=== PATIENT | female | born 1945 | race Caucasian/White ===

== ENCOUNTER 2020-04-25 14:22 | Outpatient (CLI) | payer MEDICARE, SELFPAY ==
--- NOTE | ~2020-04-25 | MM_ITS ---
EXAMINATION: MM screening anand BI w vince HISTORY: Screening mammogram TECHNIQUE: Craniocaudal and mediolateral oblique 3-D tomosynthesis images were obtained and synthetic 2-D images were generated. CAD analysis was submitted and interpreted. COMPARISON: 02/23/2019, 02/16/2018 by lateral digital screening mammogram examinations BREAST PARENCHYMAL COMPOSITION: There are scattered areas of fibroglandular density. FINDINGS: Stable mild fibroglandular asymmetry. Scattered bilateral benign calcifications. There is n o evidence of suspicious mass, calcification, or architectural distortion to suggest malignancy in ei ther breast. There has been no suspicious interval change. IMPRESSION: 1. No mammographic evidence of malignancy. 2. Recommend routine screening mammography in one year. BI-RADS Category 2: Benign finding(s). Reviewed, dictated and finalized at location A. ER DOOR ASSEMBLER
== END 2020-04-25 14:23 | disposition home or self-care (01) ==
LOC: ANHIMG 14:27
PROVIDERS: PCP Internal Medicine; Visit Provider Internal Medicine
DX: Z12.31 Encounter for screening mammogram for malignant neoplasm of breast (principal)
CPT/HCPCS: 77063; 77067

== ENCOUNTER 2020-05-01 09:27 | Outpatient (CLI) | payer MEDICARE, SELFPAY ==
--- NOTE | ~2020-05-01 | NM_ITS ---
EXAMINATION: NM stress w perf spect multi DATE: 05/01/2020 11:52 INDICATION: Chest pain TECHNIQUE: Rest images were obtained following intravenous administration of 9.1 mCi Tc99m tetrofosmi n ([employer]). The patient performed an exercise activity. At peak exercise, 27 mCi Tc99m tetrofosmin ( [employer]) was administered intravenously, and stress images were obtained. Data was reconstructed into short axis and horizontal and vertical long axis SPECT images. Gated SPECT images were also obtained . COMPARISON: None. FINDINGS: There is normal left ventricular perfusion without definite evidence of reversible or fixed perfusion abnormality to suggest ischemia or infarction. There is normal left ventricular chamber size, wall motion and ejection fraction. Left ventricular ejection fraction measures >70%. IMPRESSION: 1. Normal myocardial perfusion at rest and during stress. 2. Left ventricular ejection fraction measuring >70%. Reviewed, dictated and finalized at location B. ER LEAD CONSULTANT
--- NOTE | 2020-05-01 09:42 | EST_ITS ---
Patient Info Name: Corinne Mart Age: 74 years : 1945 Gender: Female Ht: 66 in Wt: 200 lbs BSA: 2.09 m2 Exam Date: 05/01/2020 10:53 AM Exam Location: [facility] [place] Stress Patient Status: Outpatient Admit Date: 05/01/2020 Staff Ordering Physician: Andry Gamez DO Attending Provider: Andry Gamez DO Exercise Technologist: Moriah Landeros RDCS Exercise Physician: Jay Love DO Exam Type: CA stress test treadmill w NM Study Info Indications R07.9 - Chest pain, unspecified A pharmacological stress test was performed. A nuclear stress test was performed. Summary 1. 1. Negative Aramis exercise stress test for ischemic ST changes by ECG criteria. 2. 2. Good functional capacity, achieving 8 METs of workload. 3. 3. Appropriate HR response to exercise. 4. 4. Appropriate HR recovery at 1 minute post exercise. 5. 5. Nuclear scan to follow and will be reported separately. Please correlate with it. 6. 6. Patient informed of the above results. Protocol: Aramis Stress ECG Details Stage: REST Duration (min): 5 min : 52 sec Speed (mph): 0.0 Grade (%): 0 HR (bpm): 60 SBP (mmHg): 138 DBP (mmHg): 80 METS: --- Stage: REST Duration (min): 13 min : 53 sec Speed (mph): 0.0 Grade (%): 0 HR (bpm): 65 SBP (mmHg): 138 DBP (mmHg): 80 METS: --- Stage: STAGE 1 Duration (min): 1 min : 0 sec Speed (mph): 1.7 Grade (%): 10 HR (bpm): 96 SBP (mmHg): 138 DBP (mmHg): 80 METS: --- Stage: STAGE 1 Duration (min): 2 min : 0 sec Speed (mph): 1.7 Grade (%): 10 HR (bpm): 104 SBP (mmHg): 138 DBP (mmHg): 80 METS: --- Stage: STAGE 1 Duration (min): 3 min : 0 sec Speed (mph): 1.7 Grade (%): 10 HR (bpm): 104 SBP (mmHg): 164 DBP (mmHg): 82 METS: --- Stage: STAGE 2 Duration (min): 1 min : 0 sec Speed (mph): 2.5 Grade (%): 12 HR (bpm): 114 SBP (mmHg): 164 DBP (mmHg): 82 METS: --- Stage: STAGE 2 Duration (min): 2 min : 0 sec Speed (mph): 2.5 Grade (%): 12 HR (bpm): 121 SBP (mmHg): 158 DBP (mmHg): 84 METS: --- Stage: STAGE 2 Duration (min): 3 min : 0 sec Speed (mph): 2.5 Grade (%): 12 HR (bpm): 125 SBP (mmHg): 158 DBP (mmHg): 84 METS: --- Stage: STAGE 3 Duration (min): 0 min : 50 sec Speed (mph): 3.4 Grade (%): 14 HR (bpm): 135 SBP (mmHg): 158 DBP (mmHg): 84 METS: --- Stage: RECOVERY Duration (min): 0 min : 9 sec Speed (mph): 1.5 Grade (%): 0 HR (bpm): 135 SBP (mmHg): 160 DBP (mmHg): 79 METS: --- Stage: RECOVERY Duration (min): 1 min : 9 sec Speed (mph): 0.0 Grade (%): 0 HR (bpm): 102 SBP (mmHg): 162 DBP (mmHg): 80 METS: --- Stage: RECOVERY Duration (min): 2 min : 9 sec Speed (mph): 0.0 Grade (%): 0 HR (bpm): 97 SBP (mmHg): 162 DBP (mmHg): 80 METS: ---
--- NOTE | 2020-05-04 12:19 | WPDHOLTEREM ---
Holter/Event Monitor Holter/Event Monitor Date of procedure: 05/01/20 Procedure Type: 24 hour holter monitor Indications: Dizziness Conclusion: 1. 24 hour holter monitor on 05/01/20. 2. Underlying rhythm is sinus rhythm. HR range 46-117 bpm; average HR 69 bpm. 3. There are 561 premature supraventricular complexes, 2 supraventricular couplets and 1 supraventricular triplet. One atrial tachycardia at 121 bpm lasting 4 beats at 00:40. 4. There are 32 premature ventricular complexes. No ventricular tachycardia. 5. No sinoatrial or atrioventricular blocks. No significant pauses greater than 2 seconds. 6. Patient reports chest pain which demonstrate sinus rhythm at 97 bpm.
== END 2020-05-01 09:28 | disposition home or self-care (01) ==
PROVIDERS: PCP Internal Medicine; Visit Provider Internal Medicine
DX: R42 Dizziness and giddiness (principal); R07.9 Chest pain, unspecified
CPT/HCPCS: 78452; 93017; 93225; 93226; A9502

== ENCOUNTER 2020-12-04 13:21 | Outpatient (CLI) | payer MEDICARE, SELFPAY | END 2020-12-04 13:22 | disposition home or self-care (01) | LOC: ANHAUDIO 13:26 | PROVIDERS: PCP Internal Medicine; Visit Provider Internal Medicine | DX: H90.3 Sensorineural hearing loss, bilateral (principal) | CPT/HCPCS: 92557; 92567 ==

== ENCOUNTER 2020-12-16 09:08 | Emergency (ER) | payer MEDICARE, SELFPAY ==
[2020-12-16 09:19] VITALS: BP 130/71; PULSE 79; RESP 16; TEMP 35.9; O2SAT 98
--- NOTE | 2020-12-16 09:40 | ED.FEMALEGU ---
HPI - Female Genitourinary General Chief complaint: Urogenital-Female Stated complaint: uti Time Seen by Provider: 12/16/20 09:43 Source: patient, RN notes reviewed and old records reviewed Mode of arrival: ambulatory Limitations: no limitations History of Present Illness HPI Narrative: 75 year old female who presents to [facility] care with 3-4 day history of pain with urination, nausea, some chills,suprapubic pain, and bilateral lower back pain. Patient states that her pain to her back and suprapubic abdomen area is 4/10. Patient states that she has taken some OTC pain relievers but has not taken any OTC Azo. Patient denies any vaginal discharge or any abnormal bleeding or any itching. MD elicited complaint: dysuria and UTI Related Data Home Medications Medication Instructions Recorded Confirmed aspirin 81 mg tablet,delayed 81 mg PO DAILY 04/16/19 10/25/20 release calcium carbonate 600 mg calcium 600 mg PO DAILY 04/16/19 10/25/20 (1,500 mg) tablet glucosamine-chondroitin 500 mg-400 1 tablet PO DAILY 04/16/19 10/25/20 mg tablet multivitamin 1 tablet PO DAILY 04/16/19 10/25/20 omega 9-nvm-zbs-fish oil 1,000 mg 1 cap PO DAILY 04/16/19 10/25/20 (120 mg-180 mg) capsule pantoprazole 40 mg PO QAM 12/16/20 propylene glycol-glycerin [Soothe drp OPHTHALMIC (EYE) 12/16/20 Lubricant] Allergies Allergy/AdvReac Type Severity Reaction Status Date / Time neomycin Allergy Mild Rash Verified 12/16/20 09:37 bacitracin Allergy Unknown Unknown Verified 12/16/20 09:37 polymyxin B Allergy Unknown Unknown Verified 12/16/20 09:37 Review of Systems Review of Systems: CONSTITUTIONAL: Denies fever, positive for some chills, or sweats. EYES: Denies visual changes, redness, or discharge. ENT: Denies rhinorrhea, congestion, sore throat, or otalgia. CARDIOVASCULAR: Denies chest pain, palpitations, or edema. RESPIRATORY: Denies cough or dyspnea. GASTROINTESTINAL: suprapubic abdominal pain, nausea, vomiting, or diarrhea. GENITOURINARY: positive dysuria or hematuria. SKIN: Denies rash or itching. MUSCULOSKELETAL: Low back pain,no other joint pain, or myalgia. NEUROLOGIC: Denies headache, numbness, or weakness. PSYCHIATRIC: Denies anxiety or depression. All systems reviewed & are unremarkable except as noted in HPI and below PMFSH Past Medical History Medical History (Updated 12/17/20 @ 00:00 by Ramesh Streeter) Acid reflux Osteopenia Skin cancer Surgical History Surgical History H/O colonoscopy H/O skin graft H/O tubal ligation H/O wisdom tooth extraction History of appendectomy History of Mohs micrographic surgery for skin cancer History of right oophorectomy Family History Family History Father Carcinoma of colon, Onset Age: 80 Patient's father is Mother Diabetes mellitus High cholesterol Sibling Leukemia Social History Social History Smoking status: Never smoker Second hand tobacco smoke exposure: No Alcohol intake: current Comments At time of signature, agree with nursing past medical, surgical, social and family history. There is no relevant family history pertinent to the presenting complaint Exam Narrative: GENERAL: Well-appearing, well-nourished, and in no acute distress. HEAD: Normocephalic, atraumatic. EYES: PERRLA and EOMI. ENT: Nares clear, no rhinorrhea or epistaxis. Mucous membranes moist.TM's normal with good light reflex throat pink with no lesions or exudates NECK: Supple.no lymphadenopathy CHEST: Clear to auscultation. No respiratory distress.SAO2 98% on room air HEART: Regular rate and rhythm. No murmur heard. Normal peripheral pulses. ABDOMEN: Soft, tender suprapubic, nondistended, normal active bowel sounds.Bilateral lower back pain voiced and noted on exam. EXTREMITIES: Normal range of motion. No
== END 2020-12-16 10:07 | disposition home or self-care (01) ==
PROVIDERS: Emergency Provider Registered Nurse; PCP Internal Medicine
DX: N39.0 Urinary tract infection, site not specified (principal); K21.9 Gastro-esophageal reflux disease without esophagitis; M85.80 Other specified disorders of bone density and structure, unspecified site; Z85.828 Personal history of other malignant neoplasm of skin
CPT/HCPCS: 81003; 87077; 87086; 87186; 99213; G0463

== ENCOUNTER 2021-04-09 13:57 | Outpatient (RCR) | payer MEDICARE, OTHER, SELFPAY | END 2021-04-09 23:59 | disposition home or self-care (01) | LOC: ANHAUDIO 13:57 | PROVIDERS: PCP Internal Medicine; Visit Provider Internal Medicine | DX: Z46.1 Encounter for fitting and adjustment of hearing aid (principal) | CPT/HCPCS: 99199 ==

== ENCOUNTER 2021-04-24 10:56 | Outpatient (CLI) | payer MEDICARE, SELFPAY ==
[2021-04-24 13:49] LABS: Appearance Urine Clear (Clear); Bilirubin Urine Negative (Negative); Blood Urine 2+ (Negative); Glucose Urine UA Negative (Negative); Ketones Urine Negative (Negative); Leukocyte Esterase Ur 2+ LEU/UL (Negative); Nitrate Urine Negative (Negative); Protein Urine Negative (Negative); Urobilinogen Urine 0.2 mg/dL (<2.0)
[2021-04-24 13:55] LABS: Add Urine Microscopic? YES; Color Urine Light Yellow (Yellow)
[2021-04-24 13:57] LABS: Squamous Epithelial Cell Urine Occasional /hpf (Few); WBC Urine 51-75 /hpf
== END 2021-04-24 10:57 | disposition home or self-care (01) ==
PROVIDERS: PCP Internal Medicine; Visit Provider Internal Medicine
DX: R30.0 Dysuria (principal)
CPT/HCPCS: 81001; 87077; 87086; 87186

== ENCOUNTER 2021-05-22 15:55 | Outpatient (CLI) | payer MEDICARE, SELFPAY ==
--- NOTE | ~2021-05-22 | MM_ITS ---
EXAMINATION: MM screening anand BI w vince HISTORY: Screening TECHNIQUE: Craniocaudal and mediolateral oblique 3-D tomosynthesis images were obtained and synthetic 2-D images were generated. CAD analysis was submitted and interpreted. COMPARISON: Comparison to multiple prior studies sequentially, with oldest reviewed study dated 06/2015. BREAST PARENCHYMAL COMPOSITION: There are scattered areas of fibroglandular density. FINDINGS: Stable benign-appearing breast calcifications. There is no evidence of suspicious mass, morales cification, or architectural distortion to suggest malignancy in either breast. There has been no dee picious interval change. IMPRESSION: 1. No mammographic evidence of malignancy. 2. Recommend routine screening mammography in one year. BI-RADS Category 1: Negative Reviewed, dictated and finalized at location A. ERIZER OPERATOR
== END 2021-05-22 15:56 | disposition home or self-care (01) ==
LOC: ANHIMG 15:57
PROVIDERS: PCP Internal Medicine; Visit Provider Internal Medicine
DX: Z12.31 Encounter for screening mammogram for malignant neoplasm of breast (principal)
CPT/HCPCS: 77063; 77067

== ENCOUNTER 2022-02-12 15:46 | Outpatient (CLI) | payer MEDICARE, SELFPAY ==
--- NOTE | ~2022-02-12 | XR_ITS ---
EXAMINATION: XR hip RT min 2V DATE: 02/12/2022 16:08 INDICATION: Right hip pain TECHNIQUE: Two views of right hip were obtained. COMPARISON: 09/09/2006 FINDINGS: Bone alignment is normal. There is no fracture. There is mild osteoarthritis of the hip. Th e soft tissues are unremarkable. Phleboliths are noted. IMPRESSION: 1. Mild osteoarthritis of the hip. Reviewed, dictated and finalized at location B. ING MACHINE TENDER
== END 2022-02-12 15:47 | disposition home or self-care (01) ==
PROVIDERS: PCP Internal Medicine; Visit Provider Internal Medicine
DX: M16.11 Unilateral primary osteoarthritis, right hip (principal)
CPT/HCPCS: 73502

== ENCOUNTER 2022-02-14 13:49 | Outpatient (CLI) | payer MEDICARE, SELFPAY ==
--- NOTE | ~2022-02-14 | US_ITS ---
EXAMINATION: US art doppler w press LE BI DATE: 02/14/2022 15:15 INDICATION: Peripheral vascular disease, unspecified. TECHNIQUE: Segmental pressures and plethysmographic and Doppler waveforms of the brachial and lower e xtremity arteries were obtained. COMPARISON: None. FINDINGS: Right and left brachial artery pressures of 97 mm Hg and 104 mm Hg, respectively, are concordant (nor mal difference <= 30 mmHg). The right high-thigh pressure index is 1.45 (normal > 1.2). The right ankle-brachial index (YAKOV) is 1 .24 (normal >= 0.9-1.0). The right great toe-brachial index (TBI) is 0.48 (normal >= 0.65). Arterial Doppler waveforms are biphasic from common femoral artery to the ankle. The left high-thigh pressure index is 1.25. The left YAKOV is 0.69. The left TBI is 0.38. Arterial Dopp ler waveforms are biphasic from common femoral artery to the ankle. IMPRESSION: 1. Decreased right TBI and normal right YAKOV, consistent with right-sided arterial occlusive disease. Note that YAKOV may be overestimated if arteries are calcified. 2. Moderately decreased left YAKOV, consistent with left-sided arterial occlusive disease. Reviewed, dictated and finalized at location A. GNATED BROKER IMPRESSION: 1. Decreased right TBI and normal right YAKOV, consistent with right-sided arteri al occlusive disease. Note that YAKOV may be overestimated if arteries are calcif ied. 2. Moderately decreased left YAKOV, consistent with left-sided arterial occlusive disease.
== END 2022-02-14 13:50 | disposition home or self-care (01) ==
PROVIDERS: PCP Internal Medicine; Visit Provider Internal Medicine
DX: I73.9 Peripheral vascular disease, unspecified (principal)
CPT/HCPCS: 93923

== ENCOUNTER 2022-04-02 08:24 | Outpatient (CLI) | payer MEDICARE, OTHER, SELFPAY ==
--- NOTE | 2022-04-02 11:00 | NEURO_ITS ---
Impression: # Complains of pain and numbness in lower extremities. # Neuropathy of axonal type. # Needle/EMG exam is neurogenic. # Clinical correlation recommended. Motor Nerve Conduction Lower Extremities Peroneal Nerve Conduction Velocity (m/sec) Terminal Latency (msec) Response Voltage(mV) Popliteal space-Ankle Ankle Extensor Dig Brevis Popliteal space Ankle Right 40 4.5 1 2 Left 40 4.8 1 1 Tibial Nerve Conduction Velocity (m/sec) Terminal Latency (msec) Response Voltage(mV) Popliteal space-Ankle Ankle-Extensor Dig Brevis Popliteal space Ankle Right 33 5.0 .4 .2 Left 39 5.8 .2 .6 F-waves Peroneal Nerve (ms) Tibial Nerve (ms) Right 54.0 55.1 Left 54.0 54.5 Sensory Nerve Conduction Lower Extremities Sural Nerve Stimulation Terminal Latency (msec) Ankle Response Voltage (uV) Ankle Response Velocity (m/sec) Right 3.8 26 42 Left 4.2 19 38 Superficial Peroneal Nerve Stimulation Terminal Latency (msec) Ankle Response Voltage (uV) Ankle Response Velocity (m/sec) Right 3.6 21 44 Left 3.9 17 41 Left Right Muscles Examined Fibrillation Fasciculation Scarcity Voltage Duration Left Right Left Right Left Right Left Right Left Right X X Ant Tibialis X X Gastroc X X Fibularis Long Reduced Reduced >12ms >12ms X X Flex Dig Long X X Ext Dig Brev Reduced Reduced >12ms >12ms Abd Hallucis Quadriceps Paraspinals MTDD
== END 2022-04-02 08:25 | disposition home or self-care (01) ==
PROVIDERS: PCP Internal Medicine; Visit Provider Internal Medicine
DX: R20.2 Paresthesia of skin (principal)
CPT/HCPCS: 95886; 95910

== ENCOUNTER 2022-04-04 08:13 | Outpatient (CLI) | payer MEDICARE, SELFPAY ==
[2022-04-04] VITALS (14 sets, daily range): BP systolic 99–141; BP diastolic 70–99; PULSE 68–83; RESP 10–18; TEMP 36.2–36.7; O2SAT 92–99; BMI 30.9
--- NOTE | 2022-04-04 08:30 | ECG_ITS ---
Measurements Intervals Surveyor Rate: 75 P: VA: 0 QRS: -7 QRSD: 99 T: -11 QT: 400 QTc: 450 Interpretive Statements ATRIAL FIBRILLATION LOW QRS VOLTAGE IN PRECORDIAL LEADS [QRS DEFLECTION < 1.0 mV IN CHEST LEADS] ABNORMAL RHYTHM ECG COMPARED TO ECG 07/14/2018 07:31:40 ATRIAL FIBRILLATION NOW PRESENT Electronically Signed On 04-04-2022 14:53:25 PROCUREMENT AGENT by Tanesha Taylor M.D.
[2022-04-04 09:02] LABS: Anion Gap 6 mmol/L (8-16); Blood Urea Nitrogen 18 mg/dL (7-17); Calcium 9.2 mg/dL (8.4-10.2); Carbon Dioxide 26 mmol/L (22-30); Chloride 108 mmol/L (98-107); Estimated Glomerular Filt Rate > 60; Glucose 95 mg/dL (65-110); Magnesium 1.9 mg/dL (1.6-2.3); Potassium 4.1 mmol/L (3.4-5.0); Sodium 140 mmol/L (137-145)
--- NOTE | 2022-04-04 11:07 | WPDHPUPDATE1 ---
History and Physical Update Update Date/Time: 04/04/22 11:07 History and Physical has been reviewed, including an updated exam of the patient. There are NO changes in the patient's condition. Risks, benefits, and alternatives have been discussed and questions answered. Patient agrees to proceed with procedure.
--- NOTE | 2022-04-04 11:07 | WPDMODSED ---
Moderate Sedation Note-Pt Data Patient Data Diagnosis: Atrial fibrillation Present Complaint: None Procedure to be performed/Plan: Transesophageal echocardiogram guided elective electrical cardioversion Allergies Allergy/AdvReac Type Severity Reaction Status Date / Time neomycin Allergy Mild Rash Verified 04/04/22 08:51 bacitracin Allergy Unknown Unknown Verified 04/04/22 08:51 polymyxin B Allergy Unknown Unknown Verified 04/04/22 08:51 Home Medications Medication Instructions Recorded Confirmed Type aspirin 81 mg tablet,delayed 81 mg PO DAILY 04/16/19 04/04/22 History release (Adult Low Dose Aspirin) calcium carbonate 600 mg calcium 600 mg PO BID 04/16/19 04/04/22 History (1,500 mg) tablet (Calcium) glucosamine-chondroitin 500 mg-400 1 tablet PO BID 04/16/19 04/04/22 History mg tablet (Cosamin DS) multivitamin (Daily Multi-Vitamin 1 tablet PO DAILY 04/16/19 04/04/22 History tablet) omega 5-yqq-uif-fish oil 1,000 mg 1 cap PO BID 04/16/19 04/04/22 History (120 mg-180 mg) capsule (Fish Oil) phenazopyridine 200 mg tablet 200 mg PO TID PRN pain 6 doses #6 12/16/20 04/04/22 Rx (Pyridium) tabs propylene glycol-glycerin 0.6 2 drp ophthalmic (eye) BID 12/16/20 04/04/22 History %-0.6 % eye drops in a dropperette (Soothe Lubricant) ferrous sulfate 325 mg (65 mg 325 mg PO BID #60 tabs 11/28/21 04/04/22 Rx iron) tablet pantoprazole 40 mg tablet,delayed 40 mg PO QAM #90 tabs 02/08/22 04/04/22 Rx release meloxicam 15 mg tablet 15 mg PO DAILY #30 tabs 02/12/22 04/04/22 Rx apixaban 5 mg tablet (Eliquis) 5 mg PO BID 04/04/22 04/04/22 History atorvastatin 20 mg tablet 20 mg PO DAILY 04/04/22 04/04/22 History diltiazem HCl 120 mg 240 mg PO DAILY 04/04/22 04/04/22 History capsule,extended release 24 hr (Cartia XT) Current Medications: Active Medications Sodium Chloride (Normal Saline Iv) 1,000 mls @ 30 mls/hr IV CONT .Q24H [facility] Sedation/Anesthesia: No previous sedation/anesthesia problems (including family history). [facility] Past Medical History Medical History Acid reflux Osteopenia Polycythemia Skin cancer Surgical History Surgical History H/O colonoscopy H/O skin graft H/O tubal ligation H/O wisdom tooth extraction History of appendectomy History of Mohs micrographic surgery for skin cancer History of right oophorectomy Family History Family History Father Carcinoma of colon, Onset Age: 80 Patient's father is Mother Diabetes mellitus High cholesterol Sibling Leukemia Daughter Breast cancer Social History Social History Smoking status: Never smoker Second hand tobacco smoke exposure: No Alcohol intake: current Mod Sed Physical Exam Physical Exam Pre Procedural Exam: Normal: Appearance, Eyes, Ears, Nose, Neck (Supple, normal range of motion), Throat (Posterior hypopharynx clear, nonerythematous), Airway (Normal anatomy, no obstruction), Lungs (Clear to auscultation bilaterally), Heart Size, Neuro Exam, Abdomen, Liver, Extremities and Skin and Variation: Heart Rate (Irregular irregular) and Heart Rhythm (Irregular irregular) Hours since solid foods: 12 Hours since liquid intake: 12 Mallampati Classification: class III Internal Medicine - PN: Obj Da Vital Signs Vital Signs: Vital Signs - 24 hr 04/04/22 08:50 Temperature 36.7 C Pulse Rate 69 Respiratory Rate 16 Blood Pressure 117/83 Pulse Oximetry 96 Oxygen Delivery Room Air Meds/Results Medications: Active Medications Generic Name Dose Route Start Last Admin Trade Name Freq PRN Reason Stop Dose Admin Sodium Chloride 1,000 mls @ 30 mls/hr 04/03/22 14:50 Normal Saline Iv IV CONT .Q24H [facility] Labs 04/04/22 08:41
--- NOTE | 2022-04-04 12:53 | WPDTECDV ---
VIVIANA with Cardioversion Date of procedure: 04/04/22 Procedure Type: Transesophageal echocardiogram guided elective electrical cardioversion Diagnosis: Atrial fibrillation Indications: Atrial fibrillation Description of Procedure: Brief history present illness: Patient is a pleasant 76-year-old female with a past medical history significant for peripheral arterial disease exertional dyspnea, fatigue and to be in atrial fibrillation more persistent with worsening symptoms referred for transesophageal echocardiogram-guided elective electrical cardioversion in attempt to restore sinus rhythm. Procedure in detail: After verbal and written informed consent was obtained the patient risks, benefits, and alternatives explained in detail the patient agreed to proceed with the plan of care as outlined above. Patient was evaluated at bedside in the [facility] procedure room. On examination, neck was supple with normal range of motion, no restrictions to opening of the oral cavity, jaw angle and posterior hypopharynx was clear. Lungs were clear to auscultation. Patient was placed in appropriate 30 to 45 degree angle in a supine, slight left lateral decubitus position. Patient was monitored throughout the study with telemetry, oxygen saturation, end-tidal CO2 monitoring, blood pressure, heart rate, and respirations. Anterior and posterior defibrillator pads placed in the appropriate positions. The posterior hypopharynx was then locally anesthetized using repeated administration of Hurricaine spray as well as gargled viscous lidocaine. After local anesthetic of the posterior hypopharynx was achieved and the oral bite block placed, moderate sedation was administered. Through the oral bite block, attempts to advance the transesophageal echocardiogram probe were unsuccessful due to significant patient resistance and inability to further sedate due to periods of apnea and relative hypoxia. Therefore, in the interest of safety after several attempts procedure was aborted in favor of repeat attempt with the assistance of Anesthesiology. Patient was in atrial fibrillation throughout the study. Sedation: Moderate Sedation/Anesthesia administration: Patient denied previous intolerance or complications with anesthesia/sedation. Please see sedation note for documentation of the pre-procedure physical examination. As noted above, after adequate local anesthesia of the posterior hypopharynx was achieved, a total of 3mg intravenous Versed and a total of 75mcg intravenous Fentanyl in multiple divided doses was utilized for moderate sedation. Sedation start time was 1118 and end time was 1132 for a total of 14 minutes [id number] intra-procedure time. Sedation was administered by a qualified observer Shelbi Arreaga RN under my supervision with intra-procedure [id number] observation and management throughout the entirety of the procedure. There were no other issues or complications and patient tolerated the procedure well and sedation protocol well and I was present for the entirety. Findings: N/A Conclusion: To be clear, transesophageal echocardiogram was not performed nor was elective cardioversion. Due to the inability to pass the transesophageal echocardiogram probe as result of patient inability to cooperate, limitations with anesthesia due to hypoxia associated with intermittent apnea, the procedure was aborted in preference to re-attempt with the assistance of Anesthesiology at a later date. Patient verbalized understanding and agreed with plan of care. Discussed with her who was in agreement. Recommend outpatient referral for obstructive sleep apnea evaluation.
== END 2022-04-04 13:25 | disposition home or self-care (01) ==
PROVIDERS: PCP Internal Medicine; Visit Provider Internal Medicine Cardiovascular Disease
PROC: (CPT 93312; 2022-04-04 10:00)
DX: I48.19 Other persistent atrial fibrillation (principal); R06.00 Dyspnea, unspecified; R53.83 Other fatigue; R09.02 Hypoxemia; R06.81 Apnea, not elsewhere classified; I73.9 Peripheral vascular disease, unspecified; Z79.01 Long term (current) use of anticoagulants
CPT/HCPCS: 36415; 80048; 83735; J2250; J3010; J7030

== ENCOUNTER 2022-04-23 00:36 | Day surgery (SDC) | payer MEDICARE, SELFPAY ==
[2022-04-22 13:16] VITALS: BMI 31.4
[2022-04-23] VITALS (11 sets, daily range): BP systolic 94–131; BP diastolic 61–90; PULSE 55–121; RESP 10–20; TEMP 36.3; O2SAT 92–100; BMI 31.3
--- NOTE | 2022-04-23 13:00 | ECG_ITS ---
Measurements Intervals [place] Rate: 64 P: 44 IN: 194 QRS: -10 QRSD: 94 T: 3 QT: 424 QTc: 439 Interpretive Statements SINUS RHYTHM ATRIAL PREMATURE COMPLEX LOW QRS VOLTAGE IN PRECORDIAL LEADS CONSIDER ANTERIOR INFARCT, AGE INDETERMINATE INFERIOR INFARCT, AGE INDETERMINATE ABNORMAL ECG COMPARED TO ECG 04/23/2022 13:18:44 SINUS RHYTHM NOW PRESENT MYOCARDIAL INFARCT FINDING NOW PRESENT Electronically Signed On 04-23-2022 14:53:08 STONE REPAIRER by Jay Love D.O.
[2022-04-23] MEDS: SODIUM CHLORIDE 0.9% IV 1,000 ML 30 ML IV CONT (13:42)
[2022-04-23 14:00] LABS: Anion Gap 4 mmol/L (8-16); Blood Urea Nitrogen 20 mg/dL (7-17); Calcium 9.4 mg/dL (8.4-10.2); Carbon Dioxide 29 mmol/L (22-30); Chloride 106 mmol/L (98-107); Estimated CRCL calculation 60 ml/min; Estimated Glomerular Filt Rate > 60; Glucose 86 mg/dL (65-110); Potassium 4.2 mmol/L (3.4-5.0); Sodium 139 mmol/L (137-145)
--- NOTE | 2022-04-23 14:29 | WPDANESEPPF ---
Anes - Initial Pre Proc Eval Procedure: Operation Date: 04/23/22 14:30 Proposed Procedures p Trans Esophageal Echo - Carlos Medina MD s Electrical Cardioversion - Carlos Medina MD Date/Time: 04/23/22 14:29 Surgeon: Carlos Medina MD Pre Op Diagnosis: A-fib Patient Data Age: 76 Gender: F Height: 1.68 m Weight: 88 kg Last Vital Signs Temp 36.3 C L 04/23/22 13:22 Pulse 100 04/23/22 14:25 Resp 20 04/23/22 14:25 BP 131/79 04/23/22 14:25 Pulse Ox 99 04/23/22 14:25 O2 Del Method Nasal Cannula 04/23/22 14:25 O2 Flow Rate 2 04/23/22 14:25 Allergies Allergy/AdvReac Type Severity Reaction Status Date / Time neomycin Allergy Mild Rash Verified 04/23/22 13:15 bacitracin Allergy Unknown Unknown Verified 04/23/22 13:15 polymyxin B Allergy Unknown Unknown Verified 04/23/22 13:15 Home Medications Medication Instructions Recorded Confirmed Type aspirin 81 mg tablet,delayed 81 mg PO DAILY 04/16/19 04/23/22 History release (Adult Low Dose Aspirin) glucosamine-chondroitin 500 mg-400 1 tablet PO BID 04/16/19 04/22/22 History mg tablet (Cosamin DS) multivitamin (Daily Multi-Vitamin 1 tablet PO DAILY 04/16/19 04/22/22 History tablet) omega 2-cjk-xjh-fish oil 1,000 mg 1 cap PO BID 04/16/19 04/23/22 History (120 mg-180 mg) capsule (Fish Oil) pantoprazole 40 mg tablet,delayed 40 mg PO QAM #90 tabs 02/08/22 04/23/22 Rx release apixaban 5 mg tablet (Eliquis) 5 mg PO BID 04/04/22 04/23/22 History atorvastatin 20 mg tablet 20 mg PO DAILY 04/04/22 04/23/22 History diltiazem HCl 120 mg 240 mg PO DAILY 04/04/22 04/22/22 History capsule,extended release 24 hr (Cartia XT) Laboratory Tests 04/23/22 13:24 Sodium 139 mmol/L mmol/L (137-145) Potassium 4.2 mmol/L mmol/L (3.4-5.0) Chloride 106 mmol/L mmol/L (98-107) Carbon Dioxide 29 mmol/L mmol/L (22-30) Anion Gap 4 mmol/L L mmol/L (8-16) BUN 20 mg/dL H mg/dL (7-17) Creatinine 0.80 mg/dL mg/dL (0.7-1.0) Estim Creat Clear Calc 60 ml/min ml/min Estimated GFR > 60 (59 - ) Glucose 86 mg/dL mg/dL (65-110) Calcium 9.4 mg/dL mg/dL (8.4-10.2) Magnesium 2.0 mg/dL mg/dL (1.6-2.3) Patient hx anesthesia problems: none Family hx anesthesia problems: none Results Review: All pre-operative results and documents have been reviewed as part of the pre-operative evaluation. PENDING SALE TO [facility] Past Medical History Medical History (Updated 04/23/22 @ 14:29 by Jean Ennis MD) A-fib Acid reflux Osteopenia Polycythemia Skin cancer Surgical History Surgical History H/O colonoscopy H/O skin graft H/O tubal ligation H/O wisdom tooth extraction History of appendectomy History of Mohs micrographic surgery for skin cancer History of right oophorectomy Family History Family History Father Carcinoma of colon, Onset Age: 80 Patient's father is Mother Diabetes mellitus High cholesterol Sibling Leukemia Daughter Breast cancer Social History Social History Smoking status: Never smoker Second hand tobacco smoke exposure: No Alcohol intake: current Drinks per week: 1 Alcohol use details: Once per month Substance use: never Substance use type: does not use Lack of Transportation: No Lack of Food: Never True Current Housing: I Have Housing Concerned About Future Housing: No Difficulty Paying Gas/Electric Bills: No Difficulty Paying for Meds: No Currently Unemployed: No Education: Associate Degree Difficulty w/ Childcare or Family Care: No Living arrangements: with family Spiritual care concerns: No Anes - Eval Final PreProcedure Day of Procedure 04/23/22 14:29 Patient weight: obese Heart: irregular rhythm L
--- NOTE | 2022-04-23 14:45 | ECG_ITS ---
Measurements Intervals [place] Rate: 103 P: [place]: 0 QRS: 56 QRSD: 88 T: -13 QT: 336 QTc: 442 Interpretive Statements ATRIAL FIBRILLATION WITH RAPID VENTRICULAR RESPONSE DELAYED PRECORDIAL R/S TRANSITION BORDERLINE T WAVE ABNORMALITY- INFERIOR LEADS BASELINE ARTIFACT- I, II ,III ABNORMAL ECG COMPARED TO ECG 04/04/2022 08:38:12 HEART RATE HAS INCREASED Electronically Signed On 04-23-2022 13:38:01 [employer] by Jay Love D.O.
--- NOTE | 2022-04-23 15:14 | WPDHPUPDATE1 ---
History and Physical Update Update Date/Time: 04/23/22 15:14 History and Physical has been reviewed, including an updated exam of the patient. There are NO changes in the patient's condition. Risks, benefits, and alternatives have been discussed and questions answered. Patient agrees to proceed with procedure.
--- NOTE | 2022-04-23 15:14 | WPDTECDV ---
VIVIANA with Cardioversion Date of procedure: 04/23/22 Procedure Type: Transesophageal echocardiogram guided elective electrical cardioversion Diagnosis: Atrial fibrillation Indications: Atrial fibrillation Description of Procedure: Brief history present illness: Patient is a pleasant 76-year-old female with a past medical history significant for hypertension, paroxysmal atrial fibrillation, peripheral vascular disease, hyperlipidemia referred for transesophageal echocardiogram-guided elective electrical cardioversion in attempt to restore sinus rhythm. Initial attempt with conscious sedation was unsuccessful in passing the probe due to patient's inability tolerate at a safe level of sedation. This was subsequently re-attempted with the assistance of Anesthesiology. Procedure in detail: After verbal and written informed consent was obtained the patient risks, benefits, and alternatives explained in detail the patient agreed to proceed with the plan of care as outlined above. Patient was evaluated at bedside in the endoscopy procedure suite. On examination, neck was supple with normal range of motion, no restrictions to opening of the oral cavity, jaw angle and posterior hypopharynx was clear. Lungs were clear to auscultation. Patient was placed in appropriate 30 to 45 degree angle in a supine, slight left lateral decubitus position. Patient was monitored throughout the study with telemetry, oxygen saturation, end-tidal CO2 monitoring, blood pressure, heart rate, and respirations. Anterior and posterior defibrillator pads placed in the appropriate positions. Through the oral bite block, the transesophageal echocardiogram probe was advanced into the posterior hypopharynx and into the esophagus easily and without complication. Multiple, multiplanar echocardiographic images were obtained in multiple standard re-projections. Pulsed wave, continuous-wave, and color-flow Doppler were utilized in conjunction with this study. At the conclusion of the study, the transesophageal echocardiogram probe was removed easily and without complication. Patient tolerated the procedure well without difficulty. Patient was in atrial fibrillation throughout the study. Sedation: Moderate Sedation/Anesthesia administration: Due to difficulty with prior attempt with conscious sedation and inability pass the transesophageal echocardiogram probe, this procedure was performed with Anesthesiology managing sedation and airway. Please see Anesthesiology documentation and details with regards to sedation protocol. There were no other issues or complications and patient tolerated the procedure well and sedation protocol well and I was present for the entirety. Findings: FINDINGS: LEFT VENTRICLE: Size and systolic function were within normal limits without wall motion abnormalities with ejection fraction of 55%. RIGHT VENTRICLE: Size and systolic function within normal limits. LEFT ATRIUM: Mild enlargement. RIGHT ATRIUM: Moderate enlargement. INTERATRIAL SEPTUM: Interatrial septum is anatomically normal without evidence of shunt with color-flow Doppler nor with injection of agitated saline. LAte bubble crossing noted consistent with extracardiac shunt. MITRAL VALVE: Mitral valve is anatomically normal with preserved leaflet excursion and mild to moderate regurgitation with at least 4 small separate regurgitant jets. Mild mitral annular calcification. AORTIC VALVE: The aortic valve was an anatomically normal 3 leaflet structure with mild sclerosis and normal leaflet excursion and no regurgitation identified. TRICUSPID VALVE: The tricuspid valve is anatomically normal with normal leaflet excursion with mild regurgitation identified. No mobile elements identified. PULMONIC VALVE: Pulmonic valve was not well visualized, however, trivial regurgitation was identified. LEFT ATRIAL APPENDAGE: Large, anatomically normal structure with prominent pectinate muscles witho
== END 2022-04-23 16:00 | disposition home or self-care (01) ==
LOC: ANHENDO 00:37 → ANHCATHLAB 13:09 → ANHENDO 13:22 → ANHCATHLAB 13:22
PROVIDERS: PCP Internal Medicine; Visit Provider Internal Medicine Cardiovascular Disease
PROC: (CPT 93312; principal; 2022-04-23 14:30)
PROC: 5A2204Z Restoration of Cardiac Rhythm, Single (ICD-10-PCS; 2022-04-23 14:30)
DX: I48.0 Paroxysmal atrial fibrillation (principal); I34.0 Nonrheumatic mitral (valve) insufficiency; I36.1 Nonrheumatic tricuspid (valve) insufficiency; I11.9 Hypertensive heart disease without heart failure; I73.9 Peripheral vascular disease, unspecified; E78.5 Hyperlipidemia, unspecified; Z79.01 Long term (current) use of anticoagulants; Z79.82 Long term (current) use of aspirin; K21.9 Gastro-esophageal reflux disease without esophagitis; E66.9 Obesity, unspecified; Z68.31 Body mass index [BMI] 31.0-31.9, adult
CPT/HCPCS: 36415; 80048; 83735; 92960; 93312; 93320; 93325; J2704; J7040

== ENCOUNTER 2022-07-02 15:39 | Outpatient (CLI) | payer MEDICARE, SELFPAY ==
--- NOTE | ~2022-07-02 | MM_ITS ---
EXAMINATION: MM screening anand BI w vince HISTORY: Screening TECHNIQUE: Craniocaudal and mediolateral oblique 3-D tomosynthesis images were obtained and synthetic 2-D images were generated. CAD analysis was submitted and interpreted. COMPARISON: Comparison to multiple prior studies sequentially, with oldest reviewed study dated 04/2016. BREAST PARENCHYMAL COMPOSITION: Breast composed of scattered areas of fibroglandular density FINDINGS: Stable benign-appearing bilateral breast calcifications. There is no evidence of suspicious mass, calcification, or architectural distortion to suggest malignancy in either breast. There has b een no suspicious interval change. IMPRESSION: 1. No mammographic evidence of malignancy. 2. Recommend routine screening mammography in one year. BI-RADS Category 1: Negative Reviewed, dictated and finalized at location A.
== END 2022-07-02 15:40 | disposition home or self-care (01) ==
PROVIDERS: PCP Internal Medicine; Visit Provider Internal Medicine
DX: Z12.31 Encounter for screening mammogram for malignant neoplasm of breast (principal)
CPT/HCPCS: 77063; 77067

== ENCOUNTER 2022-08-08 00:54 | Day surgery (SDC) | payer MEDICARE, SELFPAY ==
[2022-08-07 13:02] VITALS: BMI 45.6
[2022-08-08] VITALS (14 sets, daily range): BP systolic 98–115; BP diastolic 59–86; PULSE 44–76; RESP 12–16; TEMP 36.6; O2SAT 94–100; BMI 33.5
--- NOTE | 2022-08-08 07:00 | ECG_ITS ---
Measurements Intervals [place] Rate: 87 P: [place]: 0 QRS: 42 QRSD: 82 T: -14 QT: 360 QTc: 434 Interpretive Statements ATRIAL FIBRILLATION ABNORMAL ECG COMPARED TO ECG 04/23/2022 14:50:42 ATRIAL FIBRILLATION NOW PRESENT Electronically Signed On 08-08-2022 7:54:11 CDT by Jay Love D.O.
[2022-08-08 07:58] LABS: Anion Gap 5 mmol/L (8-16); Blood Urea Nitrogen 20 mg/dL (7-17); Calcium 9.3 mg/dL (8.4-10.2); Carbon Dioxide 26 mmol/L (22-30); Chloride 107 mmol/L (98-107); Estimated CRCL calculation 53 ml/min; Estimated Glomerular Filt Rate > 60; Glucose 94 mg/dL (65-110); Potassium 4.2 mmol/L (3.4-5.0); Sodium 138 mmol/L (137-145)
[2022-08-08] MEDS: SODIUM CHLORIDE 0.9% IV 1,000 ML 30 ML IV CONT (08:30)
--- NOTE | 2022-08-08 08:30 | ECG_ITS ---
Measurements Intervals [place] Rate: 46 P: 61 TN: 194 QRS: 15 QRSD: 88 T: 7 QT: 461 QTc: 404 Interpretive Statements SINUS BRADYCARDIA LOW QRS VOLTAGE IN PRECORDIAL LEADS BORDERLINE T WAVE ABNORMALITY- INFERIOR LEADS ABNORMAL ECG COMPARED TO ECG 08/08/2022 07:24:21 SINUS BRADYCARDIA NOW PRESENT Electronically Signed On 08-08-2022 9:43:02 CDT by Jay Love D.O.
--- NOTE | 2022-08-08 08:51 | WPDHPUPDATE1 ---
History and Physical Update Update Date/Time: 08/08/22 08:51 History and Physical has been reviewed, including an updated exam of the patient. There are NO changes in the patient's condition. Risks, benefits, and alternatives have been discussed and questions answered. Patient agrees to proceed with procedure.
--- NOTE | 2022-08-08 08:51 | WPDMODSED ---
Moderate Sedation Note-Pt Data Patient Data Diagnosis: Atrial fibrillation Present Complaint: none Procedure to be performed/Plan: elective electrical cardioversion Allergies Allergy/AdvReac Type Severity Reaction Status Date / Time bacitracin Allergy Mild Rash Verified 08/08/22 07:30 neomycin Allergy Mild Rash Verified 08/08/22 07:30 polymyxin B Allergy Mild Rash Verified 08/08/22 07:30 Home Medications Medication Instructions Recorded Confirmed Type aspirin 81 mg tablet,delayed 81 mg PO DAILY 04/16/19 08/08/22 History release (Adult Low Dose Aspirin) glucosamine-chondroitin 500 mg-400 1 tablet PO BID 04/16/19 08/07/22 History mg tablet (Cosamin DS) multivitamin (Daily Multi-Vitamin 1 tablet PO DAILY 04/16/19 08/07/22 History tablet) omega 8-ril-bje-fish oil 1,000 mg 1 cap PO BID 04/16/19 08/07/22 History (120 mg-180 mg) capsule (Fish Oil) atorvastatin 20 mg tablet 20 mg PO DAILY 04/04/22 08/08/22 History apixaban 5 mg tablet (Eliquis) 5 mg PO BID atrial fibrillation 04/23/22 08/08/22 Rx #60 tabs ketoconazole 2 % topical cream g topical PRN Skin Irritation 06/19/22 06/19/22 History pantoprazole 40 mg tablet,delayed 40 mg PO QAM #90 tabs 06/19/22 08/08/22 Rx release dronedarone 400 mg tablet (Multaq) 400 mg PO BID 08/07/22 08/08/22 History metoprolol tartrate 25 mg tablet 12.5 mg BID 08/07/22 08/08/22 History Current Medications: Active Medications Sodium Chloride (Normal Saline Iv) 1,000 mls @ 30 mls/hr IV CONT .Q24H MAGO Last Admin: 08/08/22 08:30 Dose: 30 mls/hr Sedation/Anesthesia: No previous sedation/anesthesia problems (including family history). [facility] Past Medical History Medical History A-fib Acid reflux Osteopenia Polycythemia Skin cancer Surgical History Surgical History H/O colonoscopy H/O skin graft H/O tubal ligation H/O wisdom tooth extraction History of appendectomy History of Mohs micrographic surgery for skin cancer History of right oophorectomy Family History Family History Father Carcinoma of colon, Onset Age: 80 Patient's father is Mother Diabetes mellitus High cholesterol Sibling Leukemia Daughter Breast cancer Social History Social History Smoking status: Never smoker Second hand tobacco smoke exposure: No Alcohol intake: current Drinks per week: 1 Alcohol use details: 1 drink per month Substance use: never Substance use type: does not use Lack of Transportation: No Lack of Food: Never True Current Housing: I Have Housing Concerned About Future Housing: No Difficulty Paying Gas/Electric Bills: No Difficulty Paying for Meds: No Currently Unemployed: No Education: Associate Degree Difficulty w/ Childcare or Family Care: No Living arrangements: with family Spiritual care concerns: No Mod Sed Physical Exam Physical Exam Pre Procedural Exam: Normal: Appearance, Eyes, Ears, Nose, Neck ( supple, normal range of motion), Throat ( posterior hypopharynx clear, nonerythematous), Airway ( normal anatomy, no obstruction), Lungs ( clear to auscultation bilaterally), Heart Size, Heart Rate, Neuro Exam, Abdomen, Extremities and Skin and Variation: Heart Rhythm ( irregularly irregular) Hours since solid foods: 12 Hours since liquid intake: 12 Mallampati Classification: class III Internal Medicine - PN: Obj Da Vital Signs Vital Signs: Vital Signs - 24 hr 08/08/22 07:37 08/08/22 08:30 Temperature 36.6 C Pulse Rate 76 69 Respiratory Rate 12 12 Blood Pressure 105/73 107/79 Pulse Oximetry 95 95 Oxygen Delivery Room Air Room Air Meds/Results Medications: Active Medications Generic Name Dose Route Start Last Admin Trade Name Freq PRN Reason Stop Do
--- NOTE | 2022-08-08 09:08 | WPDCARDVER ---
Cardioversion Cardioversion Date of procedure: 08/08/22 Procedure: elective electrical cardioversion Pre-op diagnosis: atrial fibrillation Post-op diagnosis: Same Indications: atrial fibrillation Description of procedure: Brief history present illness: Patient is a pleasant 77-year-old female with a complicated history with symptomatic persistent atrial fibrillation status post failed cardioversion on Multaq referred for elective electrical cardioversion in attempt to restore sinus rhythm. Procedure in detail: After verbal and written informed consent was obtained the patient risks, benefits, and alternatives explained in detail the patient agreed to proceed with the plan of care as outlined above. Patient was evaluated at bedside in the [facility] procedure room. On examination, neck was supple with normal range of motion, no restrictions to opening of the oral cavity, jaw angle and posterior hypopharynx was clear. Lungs were clear to auscultation. Patient was placed in appropriate 30 to 45 degree angle in a supine position. Patient was monitored throughout the study with telemetry, oxygen saturation, end-tidal CO2 monitoring, blood pressure, heart rate, and respirations. Anterior and posterior defibrillator pads placed in the appropriate positions. After confirmation of adequate sedation electrical cardioversion was carried out without complication. Patient tolerated the procedure well without difficulty. Sedation: Moderate Sedation/Anesthesia administration: Patient denied previous intolerance or complications with anesthesia/sedation. Please see sedation note for documentation of the pre-procedure physical examination. A total of 1mg intravenous Versed and a total of 50mcg intravenous Fentanyl was utilized for moderate sedation. Sedation start time was 0901 and end time was 0907 for a total of 6 minutes [id number] intra-procedure time. Sedation was administered by a qualified observer Stephany Browne RN under my supervision with intra-procedure [id number] observation and management throughout the entirety of the procedure. There were no other issues or complications and patient tolerated the procedure well and sedation protocol well and I was present for the entirety. Findings: Elective electrical cardioversion: After confirmation of adequate sedation and persistence of atrial fibrillation, 200 joules synched biphasic energy x1 was delivered with immediate restorationist of sinus rhythm. Twelve lead EKG was obtained postprocedure confirming sinus rhythm. Complications: None Conclusion: Successful restorationist of sinus rhythm status post 200 joules synched biphasic energyx1. Recommendations: Continue systemic anticoagulation without interruption until advised and particularly for the next 30 days post cardioversion. Continue current antiarrhythmic medical therapy.
== END 2022-08-08 11:00 | disposition home or self-care (01) ==
PROVIDERS: PCP Internal Medicine; Visit Provider Internal Medicine Cardiovascular Disease
PROC: 5A2204Z Restoration of Cardiac Rhythm, Single (ICD-10-PCS; principal; 2022-08-08 08:30)
DX: I48.19 Other persistent atrial fibrillation (principal); Z79.01 Long term (current) use of anticoagulants; Z79.82 Long term (current) use of aspirin; K21.9 Gastro-esophageal reflux disease without esophagitis
CPT/HCPCS: 36415; 80048; 83735; 92960; J2250; J2310; J3010; J7030

== ENCOUNTER 2023-09-02 15:34 | Outpatient (CLI) | payer MEDICARE, SELFPAY ==
--- NOTE | ~2023-09-02 | MM_ITS ---
EXAMINATION: MM screening anand BI w vince HISTORY: Screening TECHNIQUE: Craniocaudal and mediolateral oblique 3-D tomosynthesis images were obtained and synthetic 2-D images were generated. CAD analysis was submitted and interpreted. COMPARISON: Comparison to multiple prior studies sequentially, with oldest reviewed study dated 12/2016. BREAST PARENCHYMAL COMPOSITION: Not dense: There are scattered areas of fibroglandular density. FINDINGS: There is no evidence of suspicious mass, calcification, or architectural distortion to sugg est malignancy in either breast. There has been no suspicious interval change. IMPRESSION: 1. No mammographic evidence of malignancy. 2. Recommend routine screening mammography in one year. BI-RADS Category 1: Negative Reviewed, dictated and finalized at location B.
== END 2023-09-02 15:35 | disposition home or self-care (01) ==
PROVIDERS: PCP Internal Medicine; Visit Provider Internal Medicine
DX: Z12.31 Encounter for screening mammogram for malignant neoplasm of breast (principal)
CPT/HCPCS: 77063; 77067

== ENCOUNTER 2024-01-16 03:39 | Day surgery (SDC) | payer MEDICARE, SELFPAY ==
[2024-01-05 12:50] VITALS: BMI 33.3
--- NOTE | 2024-01-05 12:52 | SUR.PREOP ---
Patient advised last dose of Eliquis is 01/11. She should continue to hold Eliquis until GI provider instructs patient to resume after the procedure.
[2024-01-16 07:25] VITALS: BP 133/82; PULSE 81; RESP 19; TEMP 36.1; O2SAT 99
[2024-01-16] MEDS: LACTATED RINGERS 1,000 ML 150 ML IV CONT (07:41)
--- NOTE | 2024-01-16 08:15 | WPDANESEPPF ---
Anes - Initial Pre Proc Eval Procedure: Operation Date: 01/16/24 08:30 Proposed Procedures p Colonoscopy - Mukesh Nickerson MD Date/Time: 01/16/24 08:15 Surgeon: Mukesh Nickerson MD Pre Op Diagnosis: hx of colon polyps Patient Data Age: 78 Gender: F Height: 1.65 m Weight: 90.5 kg Last Vital Signs Temp 97 F L 01/16/24 07:25 Pulse 81 01/16/24 07:25 Resp 19 01/16/24 07:25 BP 133/82 01/16/24 07:25 Pulse Ox 99 01/16/24 07:25 O2 Del Method Room Air 01/16/24 07:25 Allergies Allergy/AdvReac Type Severity Reaction Status Date / Time bacitracin Allergy Mild Rash Verified 01/16/24 07:24 neomycin Allergy Mild Rash Verified 01/16/24 07:24 polymyxin B Allergy Mild Rash Verified 01/16/24 07:24 Home Medications Medication Instructions Recorded Confirmed Type aspirin 81 mg tablet,delayed 81 mg PO DAILY 04/16/19 01/16/24 History release (Adult Low Dose Aspirin) glucosamine-chondroitin 500 mg-400 1 tablet PO BID 04/16/19 01/16/24 History mg tablet (Cosamin DS) multivitamin (Daily Multi-Vitamin 1 tablet PO DAILY 04/16/19 01/16/24 History tablet) omega 1-xyv-sbq-fish oil 1,000 mg 1 cap PO BID 04/16/19 01/16/24 History (120 mg-180 mg) capsule (Fish Oil) atorvastatin 20 mg tablet 20 mg PO DAILY 04/04/22 01/16/24 History apixaban 5 mg tablet (Eliquis) 5 mg PO BID atrial fibrillation 04/23/22 01/16/24 Rx #60 tabs dronedarone 400 mg tablet (Multaq) 400 mg PO BID 08/07/22 01/16/24 History pantoprazole 40 mg tablet,delayed 40 mg PO QAM #90 tabs 08/06/23 01/16/24 Rx release Patient hx anesthesia problems: none Family hx anesthesia problems: none Results Review: All pre-operative results and documents have been reviewed as part of the pre-operative evaluation. [facility] Past Medical History Medical History A-fib Acid reflux Osteopenia Polycythemia Skin cancer Surgical History Surgical History H/O colonoscopy H/O skin graft H/O tubal ligation H/O wisdom tooth extraction History of appendectomy History of Mohs micrographic surgery for skin cancer History of right oophorectomy Family History Family History Father Carcinoma of colon, Onset Age: 80 Patient's father is Mother Diabetes mellitus High cholesterol Sibling Leukemia Daughter Breast cancer Social History Social History Smoking status: Never smoker Second hand tobacco smoke exposure: No Alcohol intake: never Substance use: never Substance use type: does not use Lack of Transportation: No Lack of Food: Never True Current Housing: I Have Housing Concerned About Future Housing: No Difficulty Paying Gas/Electric Bills: No Difficulty Paying for Meds: No Currently Unemployed: No Education: Associate Degree Difficulty w/ Childcare or Family Care: No Living arrangements: with family Spiritual care concerns: No Anes - Eval Final PreProcedure Day of Procedure 01/16/24 08:15 Patient weight: normal Heart: regular rate and rhythm Lungs: clear to auscultation Airway: Mallampati scale class II Neurological: alert and oriented Last oral intake: >/= 8 hours ASA classification: III Emergent: no Anesthetic plan: proceed Anesthesia type and monitoring: general GIVS and standard monitoring Results Review: All pre-operative results and documents have been reviewed as part of the pre-operative evaluation. Informed Consent: The patient's anesthetic plan and its attendant risks and benefits were discussed with the patient/family/POA. Questions were solicited and answers provided to the satisfaction of the patient/family/POA.
--- NOTE | 2024-01-16 08:40 | PM.IMHP ---
H&P: HPI History of Present Illness Date/Time: 01/16/24 08:40 Chief Complaint: History of colonic polyps. Here for surveillance colonoscopy. Review of Systems Review of Systems: All systems reviewed & are unremarkable except as noted in HPI and below PMFSH Past Medical History Medical History A-fib Acid reflux Osteopenia Polycythemia Skin cancer Surgical History Surgical History H/O colonoscopy H/O skin graft H/O tubal ligation H/O wisdom tooth extraction History of appendectomy History of Mohs micrographic surgery for skin cancer History of right oophorectomy Family History Family History Father Carcinoma of colon, Onset Age: 80 Patient's father is Mother Diabetes mellitus High cholesterol Sibling Leukemia Daughter Breast cancer Social History Social History Smoking status: Never smoker Second hand tobacco smoke exposure: No Alcohol intake: never Substance use: never Substance use type: does not use Lack of Transportation: No Lack of Food: Never True Current Housing: I Have Housing Concerned About Future Housing: No Difficulty Paying Gas/Electric Bills: No Difficulty Paying for Meds: No Currently Unemployed: No Education: Associate Degree Difficulty w/ Childcare or Family Care: No Living arrangements: with family Spiritual care concerns: No Meds Home Medications and Allergies Home Medications Medication Instructions Recorded Confirmed Type aspirin 81 mg tablet,delayed 81 mg PO DAILY 04/16/19 01/16/24 History release (Adult Low Dose Aspirin) glucosamine-chondroitin 500 mg-400 1 tablet PO BID 04/16/19 01/16/24 History mg tablet (Cosamin DS) multivitamin (Daily Multi-Vitamin 1 tablet PO DAILY 04/16/19 01/16/24 History tablet) omega 8-tyz-qbu-fish oil 1,000 mg 1 cap PO BID 04/16/19 01/16/24 History (120 mg-180 mg) capsule (Fish Oil) atorvastatin 20 mg tablet 20 mg PO DAILY 04/04/22 01/16/24 History apixaban 5 mg tablet (Eliquis) 5 mg PO BID atrial fibrillation 04/23/22 01/16/24 Rx #60 tabs dronedarone 400 mg tablet (Multaq) 400 mg PO BID 08/07/22 01/16/24 History pantoprazole 40 mg tablet,delayed 40 mg PO QAM #90 tabs 08/06/23 01/16/24 Rx release Allergies Allergy/AdvReac Type Severity Reaction Status Date / Time bacitracin Allergy Mild Rash Verified 01/16/24 07:24 neomycin Allergy Mild Rash Verified 01/16/24 07:24 polymyxin B Allergy Mild Rash Verified 01/16/24 07:24 Vital Signs Vital Signs - 24 hr 01/16/24 07:25 Temperature 97 F L Pulse Rate 81 Respiratory Rate 19 Blood Pressure 133/82 Pulse Oximetry 99 Oxygen Delivery Room Air Assessment and Plan Assessment and plan (1) History of colonic polyps: Code(s): Z86.0100 - Personal history of colon polyps, unspecified Status: Acute Plan Patient deemed a good candidate for colonoscopy, will proceed.
[2024-01-16 09:08] VITALS: BP 99/66; PULSE 72; RESP 16; O2SAT 99
[2024-01-16 09:18] VITALS: BP 114/74; PULSE 66; RESP 16; O2SAT 99
[2024-01-16 09:28] VITALS: BP 110/76; PULSE 62; RESP 16; O2SAT 97
== END 2024-01-16 10:00 | disposition home or self-care (01) ==
PROVIDERS: PCP Family Medicine; Referring Provider Family Medicine; Visit Provider Internal Medicine Gastroenterology
PROC: 0DJD8ZZ Inspection of Lower Intestinal Tract, Via Natural or Artificial Opening Endoscopic (ICD-10-PCS; CPT 45378; principal; 2024-01-16 08:30)
DX: Z12.11 Encounter for screening for malignant neoplasm of colon (principal); D12.5 Benign neoplasm of sigmoid colon; K57.30 Diverticulosis of large intestine without perforation or abscess without bleeding; K64.0 First degree hemorrhoids; I48.91 Unspecified atrial fibrillation; Z79.82 Long term (current) use of aspirin; Z79.01 Long term (current) use of anticoagulants
CPT/HCPCS: 45385; 88305; J2003; J7120

== ENCOUNTER 2024-09-17 15:21 | Outpatient (CLI) | payer MEDICARE, SELFPAY ==
--- NOTE | ~2024-09-17 | MM_ITS ---
EXAMINATION: MM screening anand BI w vince HISTORY: Screening TECHNIQUE: Craniocaudal and mediolateral oblique 3-D tomosynthesis images were obtained and synthetic 2-D images were generated. CAD analysis was submitted and interpreted. COMPARISON: Comparison to multiple prior studies sequentially, with oldest reviewed study dated 02/05. BREAST PARENCHYMAL COMPOSITION: Not dense: There are scattered areas of fibroglandular density. FINDINGS: There is no evidence of suspicious mass, calcification, or architectural distortion to sugg est malignancy in either breast. There has been no suspicious interval change. IMPRESSION: 1. No mammographic evidence of malignancy. 2. Recommend routine screening mammography in one year. BI-RADS Category 1: Negative Reviewed, dictated and finalized at location B.
--- OUTSIDE RECORDS SUMMARY | 2024-09-17 15:24 | XMS_ITS | Continuity of Care Document ---
Author Organization [facility] Address [address] [place] [address] [address] [place] [address] Phone Care Team Providers Care Heating Mechanic Name Role Phone Hever Galindo Unavailable Unavailable Procedures Procedure Date Office/outpatient Visit, [facility] Office/outpatient Visit, [facility] Advance Directives Directive Yes / No Effective Date File Name No Information Encounters Encounter Description Practice Location Reason(s) For Visit Diagnoses Date Provider Providers Copied on Encounter Office/outpat ient Visit, [facility], [id number] [place] [address] [address], [place], [place], [id number], tel:[phone] [facility] No Information Naresh-0 8-200 9 Mateo Kathleen. [address] [place], [place] [address] , [address], [place], [place], [facility] [place], [place]. tel:[phone] Office/outpat ient Visit, [facility], [address] [place] [address] [address], [place], [place], [id number], tel:[phone] [facility] No Information Naresh-0 5-200 9 Nikolay Calderón. [address] [facility] [place] [address], [place], [place], [facility], [place]. tel:[phone] Family History Family Member Type Diagnosis Age At Onset No Information Payers Payer name Insurance type Covered green party ID Authoriza tion(s) No Information Social History Type Description Quantity Date Captured Comments Sex Female Smoking Status No Information Chief Complaint And Reason For Visit No Information Reason For Referral Reason For Referral No Information History Of Present Illness Encounter Date Complaint History Of Prese nt Illness No Information Functional Status Date Functional Assessmen t No Information Instructions Date Instruction Additional Infor mation No Information Assessments Type Assessment Date No Information Patient Care Teams Name Effective Dates (start - stop) Status Members No Information
--- OUTSIDE RECORDS SUMMARY | 2024-09-17 15:24 | XMS_ITS | Referral Summary ---
Author Organization [facility] Address [address] [place] [address] Care Team Providers Care Shredder/Granulator Operator Name Role Phone Jairo Davis MD Primary Care Provider [phone] Encounters Date Type Department Care Team Description 09/10/2024 Telephone [facility] [address] [phone] Jairo Davis MD 08/31/2024 10:30 AM CDT Office Visit [facility] [address] [place] [address] Holden Rahman MD SABAS on CPAP (Primary Dx); Hypersomnia with sleep apnea; Obesity (BMI 30.0-34.9) 08/20/2024 1:30 PM CDT Office Visit [facility] [address] [place] [address] Michael Neal MD 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 (Primary Dx); Persistent atrial fibrillation (HCC); Peripheral arterial disease; Chronic anticoagulation; PVD (peripheral vascular disease) 08/19/2024 Telephone [facility] [address] [address] Jairo Davis MD 07/22/2024 Telephone [facility] [address] [address] Jairo Davis MD 07/13/2024 Patient Message [facility] at [address] [phone] Jairo Davis MD MRI 07/12/2024 Telephone [facility] at [address] [phone] Jairo Davis MD MRI 07/01/2024 5:07 PM CDT - 07/01/2024 11:59 PM CDT Hospital Encounter [address] [address] Mixed hyperlipidemia Discharge Disposition: Discharge to home or self care 07/01/2024 8:00 AM CDT Lab [facility] at [address] [phone] Mixed hyperlipidemia (Primary Dx) 06/29/2024 9:30 AM CDT Office Visit [facility] at [address] [phone] Jairo Davis MD Medicare annual wellness visit, subsequent (Primary Dx); Mixed hyperlipidemia; Pseudoclaudication; Paroxysmal atrial fibrillation (HCC); Chronic anticoagulation; BMI 34.0-34.9,adult; Obesity (BMI 30.0-34.9); Gastroesophageal reflux disease, unspecified whether esophagitis present; SABAS on CPAP; 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; PVD (peripheral vascular disease) from Last 3 Months Allergies Active Allergy Reactions Criticality Noted Date Comments Xlfduztx-Bdfffcobva-Fvluxvdjz Unknown 2023 Neosporin (Neomycin-Polymyx) Rash Medium Medications aspirin 81 mg tablet Take 1 tablet (81 mg total) by mouth daily Active glucosamine-eitan droitin 500-400 mg tablet Take 1 tablet by mouth 2 (two) times a day Active fish,bora,flax oils-om3,6,9no1 1,200 mg capsule Take 1 tablet by mouth 2 (two) times a day 05/22/[address] (PROTONIX) 40 mg EC tablet Take 1 tablet (40 mg total) by mouth daily 11 03/06/20 18 Active ketoconazole (NIZORAL) 2 % cream APPLY EXTERNALLY TO BOTH FEET TWICE DAILY DIRECTED 06/02/19 21 Active klqfjxfx-ijfn-BU -calcium-mins 18 mg iron-400 mcg-450 mg Ca tablet Take 1 tablet by mouth daily after lunch Active apixaban (Eliquis) 5 mg tablet Take 1 tablet (5 mg total) by mouth 2 (two) times a day 60 tablet 5 04/20/19 25 Active atorvastatin (LIPITOR) 20 mg tablet TAKE 1 TABLET BY MOUTH DAILY 90 tablet 3 09/01/19 25 Active dronedarone (Multaq) 400 mg tabletIndication s:Persistent atrial fibrillation (HCC) TAKE 1 TABLET BY MOUTH 2 TIMES A DAY WITH MEALS. 180 tablet 3 09/10/19 25 Active Multaq 400 mg tabletIndication s:Persistent atrial fibrillation (HCC) TAKE 1 TABLET BY MOUTH 2 TIMES A DAY WITH MEALS. 180 tablet 1 04/20/19 25 025 Discontinued atorvastatin (LIPITOR) 20 mg tablet TAKE 1 TABLET BY MOUTH DAILY 90 tablet 06/02/19 25 025 Discontinued Active Problems Problem Noted Date Diagnosed Date Medicare annual wellness visit, subsequent 06/29 Assessment & Plan (06/29/2024 10:01 AM CDT): Focus of exam si prevnetative in nature. Reivewed immuniztaionsr, eviewed sun/skin cancer screneing. R eviewed colon/breasat cancer screening. Reviewed fall prevneito nadn will montir pesronse. ; Pseudoclaudication 06/29/2024 Assessment & Plan (06/29/2024 10:01 AM CDT): Giv en sypmtomatology of bilateral lwoer extemity and limitation on d2d activiteis will refer for MRI of the lumbar spine and will continue to follow response. Establishing care with new doctor, encounter for 12/23/2023 Assessment & Plan (12/23/2023 2:03 PM CDT): Focus of exam is to estalbish care. Reviewed prior medical/surgical history and wll continue to follow response. Gastroesophageal reflux disease 12/23/2023 Assessment & Plan (06/29/2024 10:00 AM CDT): WIll try period off PPI and montir oerpsonse. Assessment & Plan (12/23/2023 2:03 PM CDT): Stable on pantoprazole and will follow response. NO dysphagia. NO blood in the stools, no black/tarry stools. Peripheral arterial disease 12/23/2023 Assessment & Plan (01/21/2024 3:50 PM CDT): Overall stable lower extremity occlusive disease. Having some thigh pain which I think sounds more related to any lumbosacral spine or hip issues. Continue risk factor modification with ASA statin therapy follow up in sixty 12 months with repeat noninvasives. Assessment & Plan (12/23/2023 2:04 PM CDT): Secondasry repvnetion with aspirin and statin therapy. BMI 34.0-34.9,adult 12/23/2023 Assessment & Plan (06/29/2024 10:00 AM CDT): Encourage helathy fodo chocies and congratualte on swimming and water aerobics. Assessment & Plan (12/23/2023 2:04 PM CDT): Enocurage healthy food chocies and target 150min/week aerobic exericse. Obesity (BMI 30.0-34.9) 12/23/2023 Assessment & Plan (06/29/2024 10:00 AM CDT): As above. Assessment & Plan (12/23/2023 2:04 PM CDT): As above. Benign skin lesion of thigh 12/23/2023 Assessment & Plan (12/23/2023 2:04 PM CDT): Chaperoned by Sharda Dobbins MA. Area on the upper anteromedial left thigh consistent with irritated probable seborrheic keratosis. Personal history of colonic polyps 12/23/2023 Assessment & Plan (12/23/2023 2:05 PM CDT): Referral to Dr. Ralph Roberts for interval c-scope. No blood in the stools. Status post catheter ablation of atrial fibrilla tion 10/04/2022 Assessment & Plan (12/23/2023 2:02 PM CDT): Continue f/u and will monitor response. Assessment & Plan (12/20/2022 3:30 PM CDT): Claudication has improved status atrial fibrillation ablation. Continue Eliquis. Assessment & Plan (10/09/2022 9:54 AM CDT): Stable, metoprolol and Eliquis. Coronary artery disease invo lving pala coronary artery of pala heart without angina pectoris 10/04/2022 Assessment & Plan (06/29/2024 9:59 AM CDT): Secondasry prevneiton. NO active anginal s/s. SABAS on CPAP 10/04/2022 Assessment & Plan (06/29/2024 10:00 AM CDT): COntinues /fuw with CPAP and iwll montior repsionse. Reivwed nightly rest and tolerating well. Assessment & Plan (12/23/2023 2:02 PM CDT): Stable on nightyly CPAP for SABAS. Improved energy. A-fib 09/27/2022 Assessment & Plan (06/29/2024 9:59 AM CDT): As asbove. COntinues on mutlaq. Assessment & Plan (12/23/2023 2:02 PM CDT): Currently in NSR s/p ablation. Continues on multaq and DOAC. Stopped metoprolol secondary to bradycardia. Exertional chest pain 05/29/2022 Mixed hyperlipidemia 04/24/2022 Assessment & Plan (06/29/2024 9:59 AM CDT): Stable on atorvastaitn and will montior response. Encourage helathy food chocies and will montior response. Assessment & Plan (01/21/2024 3:50 PM CDT): Stable continue Lipitor Assessment & Plan (12/23/2023 2:01 PM CDT): OCntinue on atorvastatin 20mg. Secondayr prevention for PAD. Assessment & Plan (12/20/2022 3:31 PM CDT): Stable continue Lipitor 20 mg. Assessment & Plan (10/09/2022 9:53 AM CDT): Stable continue Lipitor 20 mg. Assessment & Plan (04/24/2022 8:31 AM FOREIGN LANGUAGES PROFESSOR): Lipitor Chronic fatigue 03/29/2022 BUSCH (dyspnea on exertion) 03/29/2022 Chronic anticoagulation 03/29/2022 Assessment & Plan (06/29/2024 9:59 AM CDT): Continues on eliquis and rate control. WIll follow response. Persistent atrial fibrillation 03/26/2022 Assessment & Plan (01/21/2024 3:50 PM CDT): Stable continue Eliquis Assessment & Plan (04/24/2022 8:31 AM FOREIGN LANGUAGES PROFESSOR): Diltiazem and Eliquis Assessment & Plan (03/26/2022 12:39 PM FOREIGN LANGUAGES PROFESSOR): Diltiazem PVD (peripheral vascular disease) 03/13/2022 Overview (03/13/2022): Added automatically from request for surgery [id number] Assessment & Plan (06/29/2024 9:59 AM CDT): COntinues on secondary prevention to include atorvastaitn and antiplatelet agent. COntinues f/u with Dr. Morton, vascular. Assessment & Plan (07/18/2023 11:30 AM CDT): Lower extremity peripheral vascular disease with non limiting claudication. States her symptoms have not worsened since she was last seen. Continues to be active with swimming and walking. Continues to deny any rest pain or wounds. Plan: Follow-up in 6 months with a lower extremity arterial Doppler. Assessment & Plan (12/20/2022 3:30 PM CDT): Left lower extremity claudication, not life-limiting ever since undergoing an ablation for her atrial fibrillation. Continue risk factor modification with ASA statin therapy. We will plan for repeat evaluation in 6 months. Assessment & Plan (10/09/2022 9:52 AM CDT): Left lower extremity claudication. No rest pain or wounds. Recently underwent an ablation, her ABIs have increased. I have recommended continuing risk factor modification with ASA and statin therapy. We will trial a strict walking regimen over the next 2-3 months as she is not an endovascular candidate and would require a fem tibial bypass. We will further evaluate at her next appointment. Assessment & Plan (04/24/2022 2:45 PM FOREIGN LANGUAGES PROFESSOR): Continue risk factor modification with ASA statin therapy. Left lower extremity claudication is stable at this time, not life-limiting, no rest pain or wounds. Will plan for follow-up in 6 months with a repeat Doppler. 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 I would a long discussion with the patient and her spouse, she is not an endovascular candidate for revascularization. At this point her claudication is borderline life-limiting. We discussed conservative therapy with medical management walking and ongoing surveillance versus fem tibial bypass. They would like to think about it over the holidays and follow-up in 1 month. Continue risk factor modification with ASA, recommend statin therapy. Assessment & Plan (03/14/2022 7:47 AM FOREIGN LANGUAGES PROFESSOR): Bilateral lower extremity peripheral vascular disease with life-limiting claudication, left greater than right. Recommend risk factor modification with ASA and statin therapy. Risks benefits alternatives to bilateral lower extremity angiogram with possible intervention were discussed, focusing on the left leg 1st. Risks including bleeding, infection, perforation, contrast induced nephropathy, distal embolization, dissection, thrombosis, and need for further surgery. She wished to proceed. Pseudophakia of right eye 06/20/2020 Overview (06/20/2020): Phaco/ intraocular lens (IOL) right eye (OD)- GH YAG cap right eye (OD)- GH Assessment & Plan (06/20/2020 3:14 PM CDT): Phaco/ intraocular lens (IOL) right eye (OD)- GH YAG cap right eye (OD)- GH Implants in good position. Vision stable Dry eye syndrome of both eyes 06/20/2020 Assessment & Plan (06/20/2020 3:15 PM CDT): Recommend increase lubricant eye drops to 4 times/day; consider preservative- free drops, especially if using drops more than that. Add hot compresses with lid scrubs to improve quality of tears. Age-related nuclear cataract of left eye 020 Assessment & Plan (06/20/2020 3:14 PM CDT): Not visually significant. Do not recommend surgery at this time. Continue to monitor. Patient to call if problems with activities of daily living. Brochure offered/given. Immunizations Immunization Administration Dates Next Due Hep A, Adult 08/31/2002,01/25/2002 Influenza, Quad, Adjuvantate d, Intramuscular 01/06/2022 Influenza, Quadrivalent, Hig h Dose, Preservative Free, Intrr 01/07/2023,12/29/2020,12/15/2019 Influenza, Trivalent, High D ose, Split, Preservative Free, Intramuscular 01/06/2024,01/08/2017 Influenza, Unspecified 12/23/2023(Deferr ed: Patient Refused),12/06/2022(Deferred: Patient Refused) Pneumococcal Polysaccharide PPV23 12/21/2019 Td, adsorbed 01/25/2002 ZOSTER LIVE 12/22/2016 ZOSTER Recombinant 03/27/2020,01/20/2020 Social History Tobacco Use Types Packs/Day Years Used Date Smoking Tobacco: Never Smokeless Tobacco: Never Tobacco Cessation:Counseling Given: Not Answered AUDIT-C Answer Date Recorded Q1: How often do you have a drink containing alc ohol? Monthly or less 09/27/2022 Q2: How many drinks containi ng alcohol do you have on a typical day when you are drinking? 1 or 2 09/27/2022 Q3: How often do you have si x or more drinks on one occasion? Never 09/27/2022 PHQ-2 Answer Date Recorded PHQ-2 Total Score (If total score is 3 or more points, staff should administer the PHQ-9) 0 06/29/2024 Personal Safety Answer Date Recorded Have you ever been in or are you currently in a harmful physical or emotional relationship or is someone making you feel afraid or unsafe? Denies 09/27/2022 Comments No Sex and Gender Information Value Date Recorded Sex Assigned at Not on file Legal Sex Female 2:01 AM FOREIGN LANGUAGES PROFESSOR Gender Identity Not on file Sexual Orientation Not on file Last Filed Vital Signs Vital Sign Reading Time Taken Comments Blood Pressure 112/72 08/31/2024 10:20 AM CDT Pulse 62 08/31/2024 10:20 AM CDT Temperature 36.8 C (98.2 F) 06/29/2024 9:24 AM CDT Respiratory Rate 14 06/19/2023 8:41 AM CDT Oxygen Saturation 95% 08/31/2024 10:20 AM CDT Inhaled Oxygen Concentration - - Weight 93.9 kg (207 lb) 08/31/2024 10:20 AM CDT Height 165.1 cm (5' 5) 08/31/2024 10:20 AM CDT Body Mass Index 34.45 08/31/2024 10:20 AM CDT Plan of Treatment Not on file Medical Devices Implanted Type Area Vibration Analyst Device Identifier Shelf Expiration Date Model / Serial / Lot [employer] Vascade Mvp 6-12fr Venous Closure [id number] - [id number] Implanted:Qty: 1 on 09/27/2022 by Xavier Louis MD at [facility] 06/11/2024 800-612C-10 [id number] / / [id number] [employer] Vascade Mvp 6-12fr Venous Closure [id number] - [id number] Implanted:Qty: 1 on 09/27/2022 by Xavier Louis MD at [facility] 06/11/2024 800-612C-10 [id number] / / [id number] [employer] Vascade Mvp 6-12fr Venous Closure [id number] - [id number] Implanted:Qty: 1 on 09/27/2022 by Xavier Louis MD at [facility] 06/03/2024 800-612C-10 [id number] / / [id number] Procedures Procedure Name Priority Date/Time Associated Diagnosis Comments ELECTROCARDIOGRAM REPORT Routine 2:27 PM CDT Persistent atrial fibrillation (HCC) EGFR Routine 07/01/2024 12:00 PM CDT Mixed hyperlipidemia DIFFERENTIAL AUTO Routine 07/01/2024 12: 00 PM CDT Mixed hyperlipidemia LIPID PANEL Routine 07/01/2024 12:00 PM CDT Mixed hyperlipidemia CBC WITH AUTO DIFFERENTIAL Routine 07/01/2024 12:00 PM CDT Mixed hyperlipidemia COMPREHENSIVE METABOLIC PANEL Routine 07/01/2024 12:00 PM CDT Mixed hyperlipidemia COLONOSCOPY REPORT Routine 01/16/2024 9: 46 AM CDT from Last 3 Months or Most Recently Relevant to Health Maintenance Results * Electrocardiogram Report (08/20/2024 2:27 PM CDT) us Michael Neal MD ECG ORDERABLES Final Res ult * eGFR (07/01/2024 12:00 PM CDT) eGFR 70 >=60 mL/min/1. 73 m2 Comment: Interpretive Data Reference Interval Normal >/= 90 mL/min/1.73m2 Mildly decreased* 60 - 89 mL/min/1.73m2 Mildly to moderately decreased 45 - 59 mL/min/1.73m2 Moderately to severely decreased 30 - 44 mL/min/1.73m2 Severely decreased 15 - 29 mL/min/1.73m2 Kidney Failure < 15 mL/min/1.73m2 *Relative to young adult level Estimated glomerular filtration rate is determined by the 2020 CKD-EPI equation recommended by the National Kidney Foundation (A Unifying Approach to GFR Estimation: Recommendations of the NKF-ASK Task Force on Reassessing the Inclusion of Race in Diagnosing Kidney Disease, JASN 2020). The CKD-EPI equation should not be used for patients with unstable renal function and has not been validated in children and those over 70. Current interpretive data was last reviewed 2021. Blood 07/01/2024 12:0 0 PM CDT 07/01/2024 5:59 PM CDT us Jairo Davis MD LAB BLOOD ORDERABLES Berenice flowers Result [facility] [id number] [place] [address] * Differential, auto (07/01/2024 12:00 PM CDT) Pathologist [facility] Neutrophil abs 2.4 1.5 - 6.5 K/cumm Imm gran abs 0.0 0.0 - 0.1 K/cumm [facility] Lymphocyte abs 1.4 0.8 - 3.3 K/cumm [facility] Monocyte abs 0.5 0.2 - 0.8 K/cumm [facility] Eosinophil abs 0.2 0.0 - 0.5 K/cumm [facility] Basophil abs 0.0 0.0 - 0.1 K/cumm [facility] Neutrophil pct 53.7 % [facility] Comment: Interpretive Data Percent cell count reference ranges are not reported, since discordance with absolute values may lead to misinterpretation of CBC data. Current Interpretive Data was last revised on 2017. Imm gran pct 0.2 % [facility] Comment: Interpretive Data Percent cell count reference ranges are not reported, since discordance with absolute values may lead to misinterpretation of CBC data. Current Interpretive Data was last revised on 2017. Lymphocyte pct 30.3 % [facility] Comment: Interpretive Data Percent cell count reference ranges are not reported, since discordance with absolute values may lead to misinterpretation of CBC data. Current Interpretive Data was last revised on 2017. Monocyte pct 10.3 % [facility] Comment: Interpretive Data Percent cell count reference ranges are not reported, since discordance with absolute values may lead to misinterpretation of CBC data. Current Interpretive Data was last revised on 2017. Eosinophil pct 4.6 % [facility] Comment: Interpretive Data Percent cell count reference ranges are not reported, since discordance with absolute values may lead to misinterpretation of CBC data. Current Interpretive Data was last revised on 2017. Basophil pct 0.9 % [facility] Comment: Interpretive Data Percent cell count reference ranges are not reported, since discordance with absolute values may lead to misinterpretation of CBC data. Current Interpretive Data was last revised on 2017. Blood 07/01/2024 12:0 0 PM CDT 07/01/2024 5:48 PM CDT Jairo Davis MD LAB BLOOD ORDERABLES Berenice flowers Result [facility] [address] Department [place] [address] * (ABNORMAL) CBC with auto differential (07/01/2024 12:00 PM CDT) WBC 4.6 3.8 - 9.9 K/cumm Hgb 14.8 11.9 - 15.5 g/dL [facility] Hct 45.9(H) 35.6 - 45.5 % [facility] Plt 223 150 - 400 K/cumm [facility] MPV 11.2 9.1 - 12.3 fL [facility] RBC 5.04 3.90 - 5.20 M/cumm [facility] MCV 91.1 81.3 - 96.4 fL [facility] MCH 29.4 27.1 - 33.3 pg [facility] MCHC 32.2(L) 32.3 - 35.7 g/dL [facility] RDW CV 13.1 11.1 - 14.9 % [facility] RDW SD 43.8 35.7 - 48.1 fL [facility] NRBC abs 0.00 0.00 - 0.01 K/cumm [facility] Blood 07/01/2024 12:0 0 PM CDT 07/01/2024 5:48 PM CDT us Jairo Davis MD LAB BLOOD ORDERABLES Berenice flowers Result [facility] [id number] Department [place] [address] * Lipid panel (07/01/2024 12:00 PM CDT) Cholesterol 150 30 - 199 mg/dL Comment: Interpretive Data Ages < or = 19 years Acceptable: <170 mg/dL Borderline high: 170-199 mg/dL High: >or= 200 mg/dL Ages > or = 20 years Desirable: <200 mg/dL Borderline high: 200-239 mg/dL High: >or= 240 mg/dL Literature References: 1. Expert Panel on Integrated Guidelines for Cardiovascular Health and Risk Reduction in Children and Adolescents. Pediatrics 2011;128:S213 2. NCEP Expert Panel. Circulation 2004;110:227 Current Interpretive Data was last revised on 2017. Triglycerides 69 <=149 mg/dL [facility] Comment: Interpretive Data Ages < or = 9 years Acceptable: <75 mg/dL Borderline high: 75-99 mg/dL High: >or= 100 mg/dL Ages 10 to 20 years Acceptable: <90 mg/dL Borderline high: 90-129 mg/dL High: >or= 130 mg/dL Ages > or = 20 years Desirable: <150 mg/dL Borderline high: 150-199 mg/dL High: 200-499 mg/dL Very high: >or= 499 mg/dL Literature References: 1. Expert Panel on Integrated Guidelines for Cardiovascular Health and Risk Reduction in Children and Adolescents. Pediatrics 2011;128:S213 2. NCEP Expert Panel. Circulation 2004;110:227 Current Interpretive Data was last revised on 2017. HDL 67 >=40 mg/dL [facility] Comment: Interpretive Data Ages < or = 19 years Acceptable: >45 mg/dL Borderline low: 40-45 mg/dL Low: <40 mg/dL Ages > or = 20 years Desirable: >or= 60 mg/dL Low: <40 mg/dL Literature References: 1. Expert Panel on Integrated Guidelines for Cardiovascular Health and Risk Reduction in Children and Adolescents. Pediatrics 2011;128:S213 2. NCEP Expert Panel. Circulation 2004;110:227 Current Interpretive Data was last revised on 2017. LDL, calculated 69 <=129 mg/dL [facility] Comment: Interpretive Data Ages < or = 19 years Acceptable: <110 mg/dL Borderline high: 110-129 mg/dL High: >or= 130 mg/dL Ages > or = 20 years Optimal: <100 mg/dL Near optimal: 100-129 mg/dL Borderline high: 130-159 mg/dL High: >160 mg/dL Calculated using the [place] LDL-C estimating equation. This equation was implemented on 2023. Prior to this date LDL-C was estimated using the Friedewald equation. Literature References: 1. Expert Panel on Integrated Guidelines for Cardiovascular Health and Risk Reduction in Children and Adolescents. Pediatrics 2011;128:S213 2. NCEP Expert Panel. Circulation 2004;110:227 3. Parish Mendoza et al. KIMBERLY Cardiol. 2019August 05;5(5):540-548. doi: 10.1001/[email or web address] Current Interpretive Data was last revised on 2023. Non-HDL Cholesterol 83 mg/dL [facility] Comment: Interpretive Data Ages < or = 19 years Acceptable: <120 mg/dL Borderline high: 120-144 mg/dL High: >145 mg/dL Ages > or = 20 years When triglycerides are >200 mg/dL, Non-HDL cholesterol is a secondary target of therapy with treatment goals that are 30 mg/dL greater than the LDL cholesterol target. Literature References: 1. Expert Panel on Integrated Guidelines for Cardiovascular Health and Risk Reduction in Children and Adolescents. Pediatrics 2011;128:S213 2. NCEP Expert Panel. Circulation 2004;110:227 Current Interpretive Data was last revised on 2017. Chol/HDL ratio 2 [facility] Blood 07/01/2024 12:0 0 PM CDT 07/01/2024 5:48 PM CDT us Jairo Davis MD LAB BLOOD ORDERABLES Berenice lionel Result [facility] [address] Department [place] [address] * Comprehensive metabolic panel (07/01/2024 12:00 PM CDT) Sodium 141 135 - 145 mmol/L Potassium, pl 4.4 3.3 - 4.9 mmol/L [facility] Chloride 104 97 - 110 mmol/L [facility] CO2 26 22 - 32 mmol/L [facility] Anion gap 11 2 - 15 mmol/L [facility] BUN 15 6 - 25 mg/dL [facility] Creatinine 0.86 0.60 - 1.10 mg/dL [facility] Glucose 85 70 - 199 mg/dL [facility] Comment: Interpretive Data Fasting glucose >/= 126 mg/dl is diagnostic for diabetes. Fasting is defined as no caloric intake for at least 8 hours. Fasting glucose between 100 mg/dl to 125 mg/dl is diagnostic of prediabetes. In a patient with classic symptoms of hyperglycemia or hyperglycemic crisis, a random glucose >/= 200 mg/dl is diagnostic for diabetes. In the absence of unequivocal hyperglycemia, results should be confirmed by repeat testing. The classification and Diagnosis of Diabetes Diabetes Care 202; 46: S19-S40. Current interpretive data was last revised 2022. Calcium 10.0 8.5 - 10.3 mg/dL [facility] Bilirubin, total 0.8 0.1 - 1.2 mg/dL [facility] Protein, pl 7.0 6.5 - 8.5 g/dL [facility] Albumin 4.1 3.5 - 5.0 g/dL [facility] Alk phos 77 40 - 130 Units/L [facility] ALT 28 7 - 45 Units/L [facility] AST 34 10 - 45 Units/L [facility] Blood 07/01/2024 12:0 0 PM CDT 07/01/2024 5:48 PM CDT Jairo Davis MD LAB BLOOD ORDERABLES Berenice lionel Result ADINA [address] [place] [address] * Colonoscopy Report -[facility] (01/16/2024 9:46 AM CDT) Anatomical Region Laterality Modality Other us Historical Provider GI PROCEDURE ORDERABLES F inal Result from Last 3 Months or Most Recently Relevant to Health Maintenance Insurance MEDICARE AET SENIOR SUPPLEMENT [address]OLD TNA MEDICARE GOLD AETNA MEDICARE GOLD Advance Directives For more information, please contact: [phone] * Full Code (Latest Code Status on File) Date Activated Date Inactivated Comments 03/22/2022 1:03 PM 03/22/2022 9:01 PM Care Teams Shredder/Granulator Operator Relationship Specialty Start Date End Date Jairo Davis MD [address] [place] [address] PCP - General Family Medicine 12/23/23
--- OUTSIDE RECORDS SUMMARY | 2024-09-17 15:24 | XMS_ITS | Data Portability ---
Author Organization [facility] Address [address] [place] [address] Care Team Providers Care Business Excellence Manager Name Role Phone SHIRLEY TAY Primary Care Provider [phone] Assessment Encounter Date Assessment Date Assessment LastModified by Organization Details LastModified Time 10/24/2021 10/24/2021 Annual gynecological exam performed. Patient will come back in a year unless there are new symptoms. Not available 10/24/2021 14:37:06 Plan of Treatment Reminders Order Date Submit Date Provider Last Modified By Organization Details Last Modified Time Details Appointments None record ed. Lab None record ed. Referral None record ed. Procedures None record ed. Surgeries None record ed. Imaging None record ed. Medication Orders None record ed. Patient TargetsNo targets recorded. Patient InstructionsNo instructions recorded. Reason for Referral None Reported. Procedures Surgical History Date Name Laterality Status Provider Name and Address Organization Details Recorded Time 2 Date of Last Mammogram completed [facility] 10/24/2021 14:47:25 8 Date of Last Colonoscopy completed [facility] 10/24/2021 14:48:29 Imaging Results None recorded. Procedure Notes None recorded. Medical Equipment None Reported. Allergies Allergen ID Allergen Name Allergen Category Reaction Reaction Severity Criticality Documentation Date Start Date Code Code System Note Provider Name and Address Organization Details Recorded Time 78750 bacitraci n / neomycin / polymyxin B medicatio n Not available Not available Not available 10/24/2021 18267 9 RxNorm [facility] 2 14:41:04 Medications Name Sig Start Date Stop Date Status Note LastModified by Organization Details LastModified Time phenazopyrid ine 200 mg tablet TAKE 1 TABLET BY MOUTH THREE TIMES DAILY NEEDED FOR PAIN 10/24 completed Not Available Not Available Not Available sulfamethoxa zole 800 mg-trimethop rim 160 mg tablet TAKE 1 TABLET BY MOUTH EVERY 12 HOURS 10/24 completed Not Available Not Available Not Available pantoprazole 40 mg tablet,delay ed release TAKE 1 TABLET BY MOUTH EVERY MORNING active Not Available Not Available No t Available diltiazem CD 120 mg capsule,exte nded release 24 hr TAKE 1 CAPSULE BY MOUTH ONCE DAILY active Not Available Not Available No t Available ketoconazole 2 % topical cream APPLY TWICE DAILY TO BOTH FEET active Not Available Not Available No t Available Vitals Date Recorded Body height Body mass index (BMI) Body weight Systolic blood pressure Diastolic blood pressure Provider Name and Address Organization Details Last Updated DateTime 10/24/2021 162.56 cm 34.2 kg/m2 87661.88 g 136 mm[Hg] 74 mm[Hg] [facility] 14:38:51 Social History Question Answer Notes LastModified by Organizat ion Details LastModified Time Are You Blind Or Do You Have Difficulty Seeing? No Information n ot available 10/24/2021 Are You Deaf Or Do You Have Serious Difficulty Hearing? No Information not available 10/24/2021 What Type Of Diet Are You Following? REGULAR Information n ot available 10/24/2021 Do You Have Difficulty Walking Or Climbing Stairs? No Information not available 10/24/2021 Sex: Unknown Functional Status Question Answer Note LastModified by Organizat ion Details LastModified Time Are you able to walk? YESWOREST Information not available 10/24/2021 Are you able to care for yourself? Yes Information not available 10/24/2021 Do you have difficulty dressing or bathing? No Information not available 10/24/2021 What is your exercise level? None Information not available 10/24/2021 Mental Status None recorded. Family History Relationship Description Onset Age of this Age Resolved Age Notes LastModified by Organization Details LastModified Time Father Asthma Not available 14:49:38 Father Malignant tumor of colon Not available 2021 14:51:55 Daughter Malignant tumor of breast Not available 2021 14:49:47 Paternal Uncle Malignant tumor of colon Not available 2021 14:52:04 Paternal Uncle Malignant tumor of colon Not available 2021 14:52:10 Mother Heart disease Not available 2021 14:52:24 Mother Hypercholest erolemia Not available 2021 14:55:14 Maternal Grandmother Heart disease Not available 2021 14:54:27 Maternal Grandfather Heart disease Not available 2021 14:54:30 Paternal Grandfather Heart disease Not available 2021 14:54:45 Paternal Grandmother Heart disease Not available 2021 14:54:48 Paternal Aunt Heart disease Not available 2021 14:55:03 Brother Leukemia Not available 10/24/2021 14:55:33 Medical History No medical history recorded. Gynecological History Statement/Question Response Abnormal Pap N Date of Last Mammogram 08/05/2021 STIs/STDs N HPV Vaccine N Current Control Method Menopause If Post Menopausal, Age at Menopause 54 Date of Last Colonoscopy 04/07/2017 Most Recent Bone Density Sexually Active? N Menses Monthly N Age of first menstrual cycle 14 Date of Last Pap Smear Sexual Problems? N LMP Unknown Obstetrics History GPAL:G 2 P 0 0 0 2 Type Value Living 2 Total 2 Past Encounters Encounter ID Performer Location Encounter Start Date Encounter Closed Date Diagnosis/Indication Diagnosis SNOMED-CT Code Diagnosis ICD10 Code Diagnosis Note [id number] Jinny Quispe [facility] [address] [address] 10/24/2021 14:17:24 10/25/2021 16:24:13 Gynecologic examination 03599266 Z01.419 Take Calcium with Vitamin D 12-1500mg daily. Do monthly self breast exams. It is advised to get annual flu shot in the fall and [facility]. If you haven't received the Tdap vaccine in the last 10 years you should obtain one as well. Have mammogram yearly, bone density every 2-3 years and colonoscop y every 5-10 years depending on findings and history. Engage in daily exercise of low impact aerobic exercise 45-60 minutes 4-5 times weekly. Avoid tobacco and illicit drugs as well as using moderation with alcohol intake less than 1-2 8 oz beverages daily. This lifestyle behavior pattern will lead to less health conditions and longer life span. If BMI greater than 25 weight watchers or dietary consult advised. Questions have been answered. Patient appears to understand instructio ns, but if you have any further questions call or respond to this email Pap/hpv d/c per asccp unless otherwise indicated. USPSTF recommends against screening for cervical cancer in women older than 65yo, those who've had a hysterecto my for non-cancer indication s, & who have had adequate prior screening & are not otherwise at high risk for cervical cancer.Rec ommend pelvic exam at least q2yrs, yearly breast exams & other routine screenings according to age/as indicated. STD Screen declinedGe netic Screen discussedC olon Screen UTD PCPDexa Screen UTD PCPRoutine Labs UTD PCPMammo UTD PCP NOTE: NO UTI like sx's today. Will get more frequent UTI but does not appear to have a prolapse or SANJAY/UUI issues. Vaginal estrogen or urogyn referral if this becomes a routine more frequent issues of 6+ per year. Health Concerns Section Related Observation LastModified by Organization Detai ls LastModified Time None Recorded Concern Status LastModified by Organization Details LastModified Time None Recorded Advance Directives Directive None Recorded Payers Insurance Date Sequence Insurance Name Policy Number Policy Fitzgerald Covered Member ID Fitzgerald Member ID Guarantor Name 10/24/2021 1 [employer] - PRIME (MEDICARE REPLACEMEN T/ADVANTAG E - HMO) [id number] Corinne Mart [id number] Corinne Mart Notes Date Note Type Note Provider Name and Address Organization Details Recorded Time 10/24/2021 text/html 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 Post-MenopausalRe ported bypatient.[place] os[place] Symptoms:no menopausal symptoms; normal vaginal lubrication Vaginal Bleeding:history of menopause having occurred; no history of post menopausal bleeding Urinary Symptoms:no hematuria; no incontinence; no nocturia; no urinary frequency Vulva:no genital lesion; no vulvar atrophy Vagina:normal vaginal discharge; no vaginal atrophy Breast:no breast lump; no nipple discharge; no breast pain Sexual Complaints:no sexual complaints Psychological Symptoms:no depression; no anxiety Preventive Measures:encourag e regular mammograms starting age 40; encourage self breast examination; encourage regular exercise; encourage no tobacco use; mammogram performed within the past year; history of recent colonoscopy Jinny Quispe, [facility]- [address], [place], [address], [facility] 10/24/2021 23:15:19 OBGyn Episode Ob Episode Information Episode Created Date Number of Fetuses Patient Bloodtype Patient rh Status Prepregnancy Weight lbs Domestic Partner Domestic Partner Phone Father Name Correction Worker Status 10/25/19 22 1 CLOSED Fetus Data First Name Last Name Admitted to NICU Weight (g) Sex Living Outcome Pediatric Complications Fetus ID Race Codes Race Delivery Type M [id number] Vaginal Delivery Caio Calculation Initial Caio Date Initial Exam Date Initial Exam Provider Initial Ultrasound Date Last Menstrual Period Date Ultra Sound Weeks Gestation 0 Eighteen To Twenty Week Caio Update Ultra Sound Date Fundal Height At Umbil Quickening Date Ultra Sound Latest Weeks Gestation Final Caio Confirmed By Final Caio Confirmed Date Final Caio Date Ultra Sound Latest Days Gestation 0 0 Menstrual History Last Menstrual Date Menses Monthly On Bcp Conception Prior Menses Frequency Hcg Plus Date Menarche Onset Age Delivery Information Delivery Date Delivery Type Labor Anesthesia Weeks Gestation Incision Type Labor Labor Length Hrs Delivered By Post Complications Tubal Sterilization Discharge Date Comments 3 Discharge Information Feeding Method Contraceptive Method Maternal HG B and HCT Levels Ob Episode Information Episode Created Date Number of Fetuses Patient Bloodtype Patient rh Status Prepregnancy Weight lbs Domestic Partner Domestic Partner Phone Father Name Correction Worker Status 10/25/19 22 1 CLOSED Fetus Data First Name Last Name Admitted to NICU Weight (g) Sex Living Outcome Pediatric Complications Fetus ID Race Codes Race Delivery Type F [id number] Vaginal Delivery Caio Calculation Initial Caio Date Initial Exam Date Initial Exam Provider Initial Ultrasound Date Last Menstrual Period Date Ultra Sound Weeks Gestation 0 Eighteen To Twenty Week Caio Update Ultra Sound Date Fundal Height At Umbil Quickening Date Ultra Sound Latest Weeks Gestation Final Caio Confirmed By Final Caio Confirmed Date Final Caio Date Ultra Sound Latest Days Gestation 0 0 Menstrual History Last Menstrual Date Menses Monthly On Bcp Conception Prior Menses Frequency Hcg Plus Date Menarche Onset Age Delivery Information Delivery Date Delivery Type Labor Anesthesia Weeks Gestation Incision Type Labor Labor Length Hrs Delivered By Post Complications Tubal Sterilization Discharge Date Comments 0 Discharge Information Feeding Method Contraceptive Method Maternal HG B and HCT Levels
--- OUTSIDE RECORDS SUMMARY | 2024-09-17 15:24 | XMS_ITS | Clinical Summary ---
Author Organization [facility] Address [address] [place] [address] Care Team Providers Care Service Station Attendant Name Role Phone Jairo Davis MD Primary Care Provider [phone] Allergies Active Allergy Reactions Criticality Noted Date Comments Ekjanoaz-Vldmpebgop-Algwqbrpb Unknown 2023 Neosporin (Neomycin-Polymyx) Rash Medium Medications aspirin 81 mg tablet Take 1 tablet (81 mg total) by mouth daily Active glucosamine-eitan droitin 500-400 mg tablet Take 1 tablet by mouth 2 (two) times a day Active fish,bora,flax oils-om3,6,9no1 1,200 mg capsule Take 1 tablet by mouth 2 (two) times a day 05/22/[address] (PROTONIX) 40 mg EC tablet Take 1 tablet (40 mg total) by mouth daily 11 03/06/20 18 Active ketoconazole (NIZORAL) 2 % cream APPLY EXTERNALLY TO BOTH FEET TWICE DAILY DIRECTED 06/02/19 21 Active yghggcof-hdly-RX -calcium-mins 18 mg iron-400 mcg-450 mg Ca [...] cancer screening. Reviewed fall prevneito nadn will vishal ibarra. ; Pseudoclaudication 06/29/2024 Assessment & Plan (06/29/2024 [...] and Eliquis. 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 COntinues on mutlaq. Assessment & Plan (12/23/2023 [...] mg. Assessment & Plan (04/24/2022 8:31 AM LINING STITCHER): Lipitor Chronic fatigue 03/29/2022 BUSCH (dyspnea on exertion) 03/29/2022 Chronic anticoagulation 03/29/2022 Assessment & Plan (06/29/2024 9:59 AM CDT): Continues on eliquis and rate control. WIll follow response. Persistent atrial fibrillation 03/26/2022 Assessment & Plan (01/21/2024 3:50 PM CDT): Stable continue Eliquis Assessment & Plan (04/24/2022 8:31 AM LINING STITCHER): Diltiazem and Eliquis Assessment & Plan (03/26/2022 12:39 PM LINING STITCHER): Diltiazem PVD (peripheral vascular disease) 03/13/2022 Overview (03/13/2022): Added automatically from request for surgery [id number] Assessment & Plan (06/29/2024 9:59 AM CDT): [...] appointment. Assessment & Plan (04/24/2022 2:45 PM LINING STITCHER): Continue risk factor modification with ASA statin therapy. Left lower extremity claudication is stable at this time, not life-limiting, no rest pain or wounds. Will plan for follow-up in 6 months with a repeat Doppler. 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 Assessment & Plan (03/14/2022 7:47 AM LINING STITCHER): Bilateral lower extremity peripheral vascular disease with [...] with activities of daily living. Brochure offered/given. Encounters Date Type Department Care Team Description 09/10/2024 Telephone [facility] [address] [place] [address] Jairo Davis MD 08/31/2024 10:30 AM CDT Office Visit [facility] [address] [facility] [address] [place] [address] Holden Rahman MD SABAS on CPAP (Primary Dx); Hypersomnia with sleep apnea; Obesity (BMI 30.0-34.9) 08/20/2024 1:30 PM CDT Office Visit [facility] [address] [facility] [address] [place] [address] Michael Neal MD Coronary artery disease involving galena coronary artery of galena heart without angina pectoris (Primary Dx); Persistent atrial fibrillation (HCC); Peripheral arterial disease; Chronic anticoagulation; PVD (peripheral vascular disease) 08/19/2024 Telephone [facility] [address] [place] [address] Jairo Davis MD 07/22/2024 Telephone [facility] [address] [place] [address] Jairo Davis MD 07/13/2024 Patient Message [facility] Primary Care at [address] [address] Jairo Davis MD MRI 07/12/2024 Telephone [facility] Primary Care at [address] [address] Jairo Davis MD MRI 07/01/2024 5:07 PM CDT - 07/01/2024 11:59 PM CDT Hospital Encounter [address] [address] Mixed hyperlipidemia Discharge Disposition: Discharge to home or self care 07/01/2024 8:00 AM CDT Lab [facility] Outpatient Lab at [address] [address] Mixed hyperlipidemia (Primary Dx) 06/29/2024 9:30 AM CDT Office Visit [facility] Primary Care at [address] [address] Jairo Davis MD Medicare annual wellness visit, subsequent (Primary Dx); Mixed hyperlipidemia; Pseudoclaudication; Paroxysmal atrial fibrillation (HCC); Chronic anticoagulation; BMI 34.0-34.9,adult; Obesity (BMI 30.0-34.9); Gastroesophageal reflux disease, unspecified whether esophagitis present; SABAS on CPAP; Coronary artery disease involving galena coronary artery of galena heart without angina pectoris; PVD (peripheral vascular disease) from Last 3 Months Immunizations Immunization Administration Dates Next Due Hep A, Adult 08/31/2002,01/25/2002 Influenza, Quad, Adjuvantate d, Intramuscular 01/06/2022 Influenza, Quadrivalent, Hig h Dose, Preservative Free, Intrr 01/07/2023,12/29/2020,12/15/2019 Influenza, Trivalent, High D ose, Split, Preservative Free, Intramuscular 01/06/2024,01/08/2017 Influenza, Unspecified 12/23/2023(Deferr ed: Patient Refused),12/06/2022(Deferred: Patient Refused) Pneumococcal Polysaccharide PPV23 12/21/2019 Td, adsorbed 01/25/2002 ZOSTER LIVE 12/22/2016 ZOSTER Recombinant 03/27/2020,01/20/2020 Surgical History Surgery Date Site/Laterality Comments CATARACT EXTRACTION Right OOPHERECTOMY 04/07/1989 - 04/06/1990 Right SKIN CANCER EXCISION with graft x2 COLONOSCOPY TUBAL LIGATION Medical History Medical History Date Comments Cataract Hypertension Hyperlipidemia Arthritis [place] (hard of hearing) wears hear ing aid 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 PVD (peripheral vascular disease) Atrial fibrillation (HCC) Acid reflux Cancer (HCC) Sleep apnea Family History Medical History Relation Name Comments Colon cancer Father Glaucoma Mother Janet Heart failure Mother Janet Hyperlipidemia Mother Janet Macular degeneration Mother Janet Relation Name Status Comments Father Mother Janet Social History Tobacco Use Types Packs/Day Years [...] on file Legal Sex Female 2:01 AM LINING STITCHER Gender Identity Not on file Sexual Orientation Not on file Obstetrics History Last Filed Vital Signs Vital Sign Reading [...] 08/31/2024 10:20 AM CDT Plan of Treatment Health Maintenance Due Date Last Done Comments Hepatitis C Screening 1945 Osteoporosis Screening-Bone Density Scan 1945 Hepatitis B Screening 06/11/1965 DTaP/Tdap/Td Vaccine (1 - Tdap) 01/26/2002 2 Pneumococcal vaccine 65+ (2 of 2 - PCV) 12/20/2020 12/21/2019 Covid-19 Vaccine (8 2023-2 5 season) 2024 01/06/2024, 01/13/2023, 01/22/2022, Additional history exists Depression Screening 06/29/2025 06/29/2024, 12/23/19 Fall Risk Assessment 06/29/2025 06/29/2024, 12/23/2023, 09/28/2022 Well Visit 65+ 06/29/2025 06/29/2024 Zoster Vaccine Completed 03/27/2020, 01/05, 12/22/2016 Influenza Vaccine Completed 01/06/2024, , 01/06/2022, Additional history exists Colon Cancer Screening-CT Colonography Discontinued 01/16/2024 Colon Cancer Screening-Colonoscopy Discontinued 01/16/2024 Colon Cancer Screening-DNA Stool Discontinued 01/16/20 Colon Cancer Screening-FIT Discontinued 01/16/2024 Colon Cancer Screening-FOBT Discontinued 01/16/2024 Colon Cancer Screening-Sigmoidoscopy Discontinued 01/16/2024 Colorectal Cancer Screening Discontinued Medical Devices Implanted Type Area Solutions Sales Executive Device Identifier Shelf Expiration Date Model / Serial / Lot [employer] Vascade Mvp 6-12fr Venous Closure [id number] - [id number] Implanted:Qty: 1 on 09/27/2022 by Xavier Louis MD at [facility] 06/11/2024 [id number] / / [id number] A [employer] Vascade Mvp 6-12fr Venous Closure [id number] - [id number] Implanted:Qty: 1 on 09/27/2022 by Xavier Louis MD at [facility] 06/11/2024 [id number]-10 U / / [id number] A [employer] Vascade Mvp 6-12fr Venous Closure [id number] - [id number] Implanted:Qty: 1 on 09/27/2022 by Xavier Louis MD at [facility] 06/03/2024 [id number]-10 [id number] / / [id number] A Procedures Procedure Name Priority Date/Time Associated [...] Jairo Davis MD LAB BLOOD ORDERABLES Berenice l Result [facility] [address] Department [place] [address] * Differential, auto (07/01/2024 12:00 PM CDT) Neutrophil abs 2.4 1.5 - 6.5 K/cumm Imm gran abs 0.0 0.0 - 0.1 K/cumm [facility] Lymphocyte abs 1.4 0.8 - 3.3 K/cumm [facility] Monocyte abs 0.5 0.2 - 0.8 K/cumm [facility] Eosinophil abs 0.2 0.0 - 0.5 K/cumm [facility] Basophil abs 0.0 0.0 - 0.1 K/cumm [facility] Neutrophil pct 53.7 % [facility] Comment: Interpretive Data Percent cell count reference ranges are not reported, since discordance with absolute values may lead to misinterpretation of CBC data. Current Interpretive Data was last revised on 2017. Imm gran pct 0.2 % [facility] Comment: Interpretive Data Percent cell count reference [...] revised on 2017. Monocyte pct 10.3 % [facility] Comment: Interpretive Data Percent cell count [...] revised on 2017. Basophil pct 0.9 % [facility] Comment: Interpretive Data Percent cell count reference ranges are not reported, since discordance with absolute values may lead to misinterpretation of CBC data. Current Interpretive Data was last revised on 2017. Blood 07/01/2024 12:0 0 PM CDT 07/01/2024 5:48 PM CDT Jairo Davis MD LAB BLOOD ORDERABLES Berenice flowers Result [facility] [address] Department [place] [address] * (ABNORMAL) CBC with auto differential (07/01/2024 12:00 PM CDT) WBC 4.6 3.8 - 9.9 K/cumm Hgb 14.8 11.9 - 15.5 g/dL [facility] Hct 45.9(H) 35.6 - 45.5 % [facility] Plt 223 150 - 400 K/cumm [facility] MPV 11.2 9.1 - 12.3 fL [facility] RBC 5.04 3.90 - 5.20 M/cumm [facility] MCV 91.1 81.3 - 96.4 fL [facility] MCH 29.4 27.1 - 33.3 pg [facility] MCHC 32.2(L) 32.3 - 35.7 g/dL [facility] RDW CV 13.1 11.1 - 14.9 % [facility] RDW SD 43.8 35.7 - 48.1 fL [facility] NRBC abs 0.00 0.00 - 0.01 K/cumm [facility] Blood 07/01/2024 12:0 0 PM CDT 07/01/2024 5:48 PM CDT us Jairo Davis MD LAB BLOOD ORDERABLES Berenice l Result [facility] [address] Department [place] [address] * Lipid panel (07/01/2024 12:00 PM CDT) [...] revised on 2017. Triglycerides 69 <=149 mg/dL [facility] Comment: Interpretive Data Ages < or [...] MD LAB BLOOD ORDERABLES Berenice flowers Result [facility] [address] Department [place] [address] * Comprehensive metabolic panel (07/01/2024 12:00 PM [...] classification and Diagnosis of Diabetes Diabetes Care 2021; 46: S19-S40. Current interpretive data was last [...] CH AST 34 10 - 45 Units/L [facility] CH Blood 07/01/2024 12:0 0 PM CDT 07/01/2024 5:48 PM CDT Jairo Davis MD LAB BLOOD ORDERABLES Berenice l Result [facility] [address] Department [place] [address] * Colonoscopy Report -[facility] (01/16/2024 9:46 AM CDT) Anatomical Region Laterality Modality Other Historical Provider GI PROCEDURE ORDERABLES F inal Result from Last 3 Months or Most Recently Relevant to Health Maintenance Insurance MEDICARE [facility] AETNA MEDICARE GOLD T MEDICARE [facility] MEDICARE [facility] Advance Directives For more information, please contact: [phone] * Full Code (Latest Code Status on File) Date Activated Date Inactivated Comments 03/22/2022 1:03 PM 03/22/2022 9:01 PM Care Teams Service Station Attendant Relationship Specialty Start Date End [place] [address] PCP - General Family Medicine 12/23/23
--- OUTSIDE RECORDS SUMMARY | 2024-09-17 15:24 | XMS_ITS | Encounter Summary ---
Author Organization [facility] Address [address] [place] [address] Care Team Providers Care Vault Installer Name Role Phone Unavailable Primary Care Provider Unavailabl e Encounter Details Date Type Department Care Team (Late st Contact Info) Description 06/10/2019 Lab Requisition [facility] DermPath Lab [address] [facility] [place] [id number] Austin Campbell MD [address] [place] [address] Social History Tobacco Use Types Packs/Day Years Used Date Smoking Tobacco: Never Assessed Comments Unknown Sex and Gender Information Value Date Recorded Sex Assigned at Not on file Legal Sex Female 6:12 PM SOCIAL MEDIA EDITOR Gender Identity Not on file Sexual Orientation Not on file documented as of this encounter Plan of Treatment Not on file documented as of this encounter Procedures Procedure Name Priority Date/Time Associated Diagnosis Comments DERMATOPATHOLOGY Routine 06/09/2019 12:0 0 AM SOCIAL MEDIA EDITOR documented in this encounter Results * DERMATOPATHOLOGY (06/09/2019 12:00 AM SOCIAL MEDIA EDITOR) Case Report Dermatopathology Report Case: [id number] Authorizing Provider: Austin Campbell MD Collected: 06/09/2019 12:00 AM Ordering Location: [facility] DermPath Lab Received: 06/10/2019 02:24 PM Pathologist: Kiersten Howard MD Specimen: Skin, left upper cut lip 0 12:26 PM SOCIAL MEDIA EDITOR DERMATOPATHOLOGY LABORATORY Final Diagnosis Specimen A. SKIN, left upper cut lip: BASAL CELL CARCINOMA, NODULAR TYPE (C44.319) POST-INFLAMMATORY PIGMENT ALTERATION (L81.9) 0 12:26 PM SOCIAL MEDIA EDITOR DERMATOPATHOLOGY LABORATORY at [address] SOCIAL MEDIA EDITOR Clinical History R/O dys nevus. 0 12:26 PM [facility] DERMATOPATHOLOGY LABORATORY Gross Description Specimen A: Received is one formalin filled container labeled with the patient's name and designated left upper cut lip. The specimen consists of a shave biopsy measuring 6x4x1 mm. Jar 0. 0 12:26 PM [facility] DERMATOPATHOLOGY LABORATORY Microscopic Description Specimen A. SKIN, left upper cut lip: Within the dermis there are aggregates of basaloid cells with a high nuclear to cytoplasmic ratio and peripheral palisading. Sections show abundant melanin within melanophages around the superficial vascular plexus. 0 12:26 PM [facility] DERMATOPATHOLOGY LABORATORY Disclaimer An external and internal positive and negative controls are appropriate for the histochemical, immunohistochemical and immunofluorescence stain(s) in this case (if any), except where stated explicitly. The performance characteristics of the stain(s) cited in this report were developed and its performance characteristic determined by the Dermatopathology Laboratory at [facility], directed by Dr. Bonnie Boone. These tests need not be, and therefore are not, approved by the [place] Food and Drug Administration. The tests are used for clinical purposes. Billing Codes Specimen Charges Stain Charges 01578 1 0 12:26 PM SOCIAL MEDIA EDITOR DERMATOPATHOLOGY LABORATORY Embedded Images 0 12:26 PM [facility] DERMATOPATHOLOGY LABORATORY Pathology/Cytolog y TISSUE SPECIMEN FROM SKIN / Unknown 06/09/2019 06/10/2019 2:24 PM SOCIAL MEDIA EDITOR Austin Campbell MD LAB - PATHOLOGY/CYTOLOGY ORD ERABLES Final Result DERMATOPATHOLOGY LABORATORY [facility] - Department of Dermatology [address] [place] [address], 5th [place] [address], [facility] [phone] documented in this encounter Visit Diagnoses Not on filedocumented in this encounter
--- OUTSIDE RECORDS SUMMARY | 2024-09-17 15:24 | XMS_ITS | Clinical Summary ---
Author Organization [facility] Address [address] [place] [address] Care Team Providers Care Shoe Planner Name Role Phone Unavailable Primary Care Provider Unavailabl e Source Comments [facility] Rank By Search,non-owned Affiliates and Associated Physician Practices is amultiple site organization consisting of ambulatory clinics and hospital sitesin [place], [place], [place] and [place]. This disclosure is being madepursuant to the Care Everywhere program and may not contain all information available regarding this patient. Last updated 17.[facility] Rank By Search Social History Tobacco Use Types Packs/Day Years Used Date Smoking Tobacco: Never Assessed Comments Unknown Sex and Gender Information Value Date Recorded Sex Assigned at Not on file Legal Sex Female 6:12 PM PRINCIPAL DATA ARCHITECT Gender Identity Not on file Sexual Orientation Not on file Plan of Treatment Health Maintenance Due Date Last Done Comments BONE DENSITY TESTING 1945 HEPATITIS C SCREENING 06/07/1963 DTAP/TDAP/TD VACCINES (1 - Tdap) 06/11/1966 PNEUMOCOCCAL VACCINE 50+ (1 of 1 - PCV) 06/11/1997 ZOSTER VACCINE (1 of 2) 06/11/1997 Respiratory Syncytial Virus (RSV) Vaccine Pt: or over 60 yrs (1 - 1-dose 75+ series) 06/11/2022 COVID-19 VACCINE ( - 2023-2 5 season) 2023 DEPRESSION SCREENING 04/07/2024 MEDICARE AWV CALENDAR YEAR 2024 INFLUENZA VACCINE Completed 01/06/2024, 01/08/2017 HEPATITIS B VACCINE Aged Out No longe r eligible based on patient's age to complete this topic HIB VACCINE Aged Out No longer eligi ble based on patient's age to complete this topic HPV VACCINE Aged Out No longer eligi ble based on patient's age to complete this topic MENINGOCOCCAL (Group B) VACCINE SHARED DECISION-MAKING Aged Out No longer eligible based on patient's age to complete this topic MENINGOCOCCAL GROUPS A/C/Y/W VACCINE Aged Out No longer eligible b ased on patient's age to complete this topic Insurance MEDICARE AETNA AETNA MEDICARE ADV SELF PAY NO INSURANCE Member Subscriber Plan / Payer (Ef fective for All Dates) Name:Corinne Martino Member ID:Not on file Relation to Subscriber:Not on file Name:JAMESCORINNE VALIENTE Subscriber ID:Not on file (Home) Address: [address] [place] [id number] Payer ID:Not on file Group ID:Not on file Type:Self Pay Address: [place], [place]
--- OUTSIDE RECORDS SUMMARY | 2024-09-17 15:24 | XMS_ITS | Encounter Summary ---
Author Organization [facility] Address [address] [place] [address] Care Team Providers Care High School Foreign Language Teacher Name Role Phone Unavailable Primary Care Provider Unavailabl e Encounter Details Date Type Department Care Team (Late st Contact Info) Description 03/19/2018 Lab Requisition [facility] Care DermPath Lab [address] [facility] [place] [id number] Austin Campbell MD [address] [place] [address] Social History Tobacco Use Types Packs/Day Years Used Date Smoking Tobacco: Never Assessed Comments Unknown Sex and Gender Information Value Date Recorded Sex Assigned at Not on file Legal Sex Female 6:12 PM WATER PUMPING STATION ENGINEER Gender Identity Not on file Sexual Orientation Not on file documented as of this encounter Plan of Treatment Not on file documented as of this encounter Procedures Procedure Name Priority Date/Time Associated Diagnosis Comments DERMATOPATHOLOGY Routine 03/18/2018 12:0 0 AM WATER PUMPING STATION ENGINEER documented in this encounter Results * DERMATOPATHOLOGY (03/18/2018 12:00 AM WATER PUMPING STATION ENGINEER) Case Report Dermatopathology Report Case: [id number] Authorizing Provider: Austin Campbell MD Collected: 03/18/2018 12:00 AM Pathologist: Gladys Chavarria MD Received: 03/19/2018 11:58 AM Specimen: Skin, left lower pretibia 8 1:41 PM WATER PUMPING STATION ENGINEER DERMATOPATHOLOGY LABORATORY Final Diagnosis Specimen A. SKIN, left lower pretibia: BASAL CELL CARCINOMA, NODULAR TYPE, ERODED AND INFLAMED (C44.719) 8 1:41 PM WATER PUMPING STATION ENGINEER DERMATOPATHOLOGY LABORATORY at [address] WATER PUMPING STATION ENGINEER Clinical History R/O SCC. 1:41 PM [facility] DERMATOPATHOLOGY LABORATORY Gross Description Specimen A: Received is one formalin filled container labeled with the patient's name and designated left lower pretibia. The specimen consists of a shave biopsy measuring [id number]. Jar 0. 1:41 PM [facility] DERMATOPATHOLOGY LABORATORY Microscopic Description Specimen A. SKIN, left lower pretibia: The epidermis is eroded. Within the dermis there are aggregates of basaloid cells with a high nuclear to cytoplasmic ratio and peripheral palisading. Focal clear cell changes is noted in the tumor. The lesion is inflamed. 1:41 PM [facility] DERMATOPATHOLOGY LABORATORY Disclaimer An external and internal positive and negative controls are appropriate for the histochemical, immunohistochemical and immunofluorescence stain(s) in this case (if any), except where stated explicitly. The performance characteristics of the stain(s) cited in this report were developed and its performance characteristic determined by the Dermatopathology Laboratory at [facility]. These tests need not be, and therefore are not, approved by the [place] Food and Drug Administration. The tests are used for clinical purposes. Billing Codes Specimen Charges Stain Charges 14866 1 1:41 PM WATER PUMPING STATION ENGINEER DERMATOPATHOLOGY LABORATORY Embedded Images 1:41 PM [facility] DERMATOPATHOLOGY LABORATORY Pathology/Cytolog y TISSUE SPECIMEN FROM SKIN / Unknown 03/18/2018 03/19/2018 11:58 AM WATER PUMPING STATION ENGINEER Austin Campbell MD LAB - PATHOLOGY/CYTOLOGY ORD ERABLES Final Result DERMATOPATHOLOGY LABORATORY [facility] - Department of Dermatology [address] [place] [address], 5th [place] [address], [facility] [place] [phone] documented in this encounter Visit Diagnoses Not on filedocumented in this encounter
== END 2024-09-17 15:22 | disposition home or self-care (01) ==
LOC: ANHIMG 15:22
PROVIDERS: PCP Family Medicine; Visit Provider Family Medicine
DX: Z12.31 Encounter for screening mammogram for malignant neoplasm of breast (principal)
CPT/HCPCS: 77063; 77067